=== PATIENT | female | born 1975 | race Caucasian/White ===

== ENCOUNTER 2018-01-26 08:13 | Emergency (ER) | payer MEDICAID, SELFPAY ==
[2018-01-26 08:15] VITALS: BP 146/74; PULSE 104; RESP 24; TEMP 36.6; O2SAT 92; BMI 32.9
--- NOTE | 2018-01-26 08:25 | EKG12_ITS ---
Test Reason : SOB Blood Pressure : / mmHG Vent. Rate : 083 BPM Atrial Rate : 083 BPM P-R Int : 176 ms QRS Dur : 092 ms QT Int : 388 ms P-R-T Axes : 039 056 078 degrees QTc Int : 455 ms Normal sinus rhythm Normal ECG Confirmed by ANY GARCIA, LEVI ([id number]), social media editor DEBI CALDERON ([id number]) on 01/28/2018 3:10:30 PM Referred By: JUDITH Confirmed By:LEVI AGARWAL MD
--- NOTE | 2018-01-26 08:29 | ED.DCSUM_ITS ---
- ER Visit Summary Date of Service: 01/26/18 Chief Complaint: Shortness of breath History of Present Illness: The patient is a 42 F with history of COPD who presents for 2 days of worsening shortness of breath. Patient states she is unable to walk short distances without becoming extremely short of breath. She has associated productive cough, rhinorrhea, sinus congestion, sore throat and pleuritic chest pain. She denies fever. She states she normally gets pneumonia with her COPD, and this feels concerning to her. She denies any recent antibiotic or steroid use. She has nebulizers at home but has not used them in a long time. Patient also has history of hypertension and degenerative joint disease. Patient smokes. Patient is on oxycodone for chronic pain. No blood thinners. Physical Examination: Vital signs: afebrile, hemodynamically stable, 92% O2 sat on room air General: well nourished, well developed, in no distress Skin: warm, dry, no rash, no pallor HEENT: normocephalic and atraumatic; PERRL, EOMI, moist mucous membranes, no oropharyngeal lesions, left TM shows fluid behind the eardrum, no bulging dullness or erythema, right TM unremarkable Cardiovascular: Tachycardic rate and rhythm without murmurs, no peripheral edema, 2+ pulses all distal extremities Respiratory: Mild increased work of breathing, lungs show diffuse inspiratory and expiratory wheezing, diminished breath sounds in the left lower field Abdominal: Abdomen is soft, nontender with normoactive bowel sounds, no guarding or rebound, no masses MSK: Moves all extremities, no deformities, normal strength Neuro: Awake and alert, oriented ?4. No facial droop, sensation and motor function intact and symmetric Test Results: Abnormal Lab Results 01/26/18 01/26/18 08:32 08:32 WBC 6.3 RBC 4.90 Hgb 15.4 H Hct 44.8 MCV 91.4 MCH 31.4 MCHC 34.4 RDW 14.0 RDW Differential 46.7 H Plt Count 321 MPV 9.6 Immature Gran % (Auto) 0.200 Neut % (Auto) 65.7 Lymph % (Auto) 20.7 Mcleod % (Auto) 11.5 H Eos % (Auto) 1.4 Baso % (Auto) 0.5 Absolute Neuts (auto) 4.2 Absolute Lymphs (auto) 1.31 Total Counted Not Reportable Sodium 140 Potassium 3.3 L Chloride 107 Carbon Dioxide 25.0 Anion Gap 8 BUN 4 L Creatinine 0.81 Estim Creat Clear Calc 71.56 Est GFR (MDRD) Af Amer 100 Est GFR (MDRD) Non-Af 82 BUN/Creatinine Ratio 4.9 L Glucose 107 H Calcium 9.1 Troponin I < 0.015 Clinical Impression(s) from Imaging Studies Chest X-Ray 01/26/18 09:00 IMPRESSION: 1. No acute cardiopulmonary abnormality noted. 2. COPD changes. Electronically Signed: Ramona Mccallmu MD at 9:53 EDT Tel , Service support , Medications Given Discontinued Medications Acetaminophen (Tylenol) 650 mg PO X1 ONE Stop: 01/26/18 08:55 Last Admin: 01/26/18 09:00 Dose: 650 mg Albuterol Sulfate (Ventolin Aerosols) 2.5 mg INHALATION Q20M MI Stop: 01/26/18 09:11 Last Admin: 01/26/18 08:37 Dose: Not Given Admin: 01/26/18 08:37 Dose: 2.5 mg Admin: 01/26/18 08:37 Dose: 2.5 mg Albuterol/Ipratropium (Duoneb) 3 ml INHALATION X1 ONE Stop: 01/26/18 08:26 Last Admin: 01/26/18 08:37 Dose: 3 ml Sodium Chloride () 1,000 mls @ 999 mls/hr IV .Q1H1M ONE Stop: 01/26/18 09:25 Last Admin: 01/26/18 08:47 Dose: 999 mls/hr Ketorolac Tromethamine (Toradol) 15 mg IV X1 ONE Stop: 01/26/18 09:59 Prednisone () 60 mg PO X1 ONE Stop: 01/26/18 08:26 Last Admin: 01/26/18 08:45 Dose: 60 mg Emergency Department Course and Treatment: Patient was given a series of breathing treatments and prednisone for concern for COPD exacerbation. EKG showed a sinus rhythm with no ischemic changes. Patient was tachycardic when she initially presented, but heart rate had slowed down at the time of her EKG. After her nebulizer treatments, she was again tachycardic. Reevaluation of the lungs showed great improvement in the wheezing, still with mild end expiratory wheezing. Labs showed no leukocytosis, negative troponin. Chest x-ray showed changes consistent with COPD but no infiltrates or effusions, no pulmonary edema. Patient was complaining of a headache and was given Tylenol for pain. She continued to complain of a headache and was given additional IV Toradol. Headache was localized to the occipital region and upper neck, with paraspinal cervical tenderness, supple neck with full active range of motion, no meningeal signs. Patient was prescribed azithromycin and prednisone burst for COPD exacerbation with concrement and acute bronchitis. She is out of her nebulizer treatments at home and was given a prescription for albuterol. Patient will follow up with her doctor if she is not having improvement in 3-5 days. Patient was discharged home with her breathing and lung exam improved. Treatment Plan: [] Disposition: [] Impression: Acute COPD exacerbation, acute bronchitis This note was generated with [employer] dictation software. It may contain incorrect words, spelling, and punctuation that were not noted in review of the chart prior to signing ED Disposition - Plan for ED Patient: Chief Complaint: Shortness of Breath Prescriptions: Albuterol Aerosols [Ventolin Aerosols] 2.5 mg INHALATION Q4H PRN #30 vial Azithromycin [Zithromax Z-Junior] 250 mg PO UD #1 box Prednisone [Deltasone] 40 mg PO DAILY #10 tab Referrals: Catrachito Berry DO [Primary Care Provider] -
[2018-01-26 08:35] VITALS: O2SAT 94
[2018-01-26] MEDS: Ipratropium/Albuterol Sulfate 3 ML AMPUL.NEB INHALATION (08:37)
[2018-01-26] MEDS: Albuterol 2.5 MG/3 ML VIAL.NEB. INHALATION ×2 (08:37)
[2018-01-26 08:38] VITALS: PULSE 103; RESP 20
[2018-01-26 08:42] LABS: Absolute Lymphocyte Count 1.31 X10^3/ul (0.83-4.51); Absolute Neutrophil Count 4.2 X10^3/uL (2.0-7.7); Basophil# 0.03 X10^3/uL; Basophil% 0.5 % (0-1); Eosinophil# 0.09 X10^3/uL; Eosinophils% 1.4 % (0-5); Hematocrit 44.8 % (37-47); Hemoglobin 15.4 g/dl (12.0-15.0); Lymphocyte # 1.31 X10^3/ul (4.0); Lymphocyte % 20.7 % (19-41); Mean Corp Hgb Conc 34.4 g/gl (32-36); Mean Corpuscular Hgb 31.4 pg (27.0-32.0); Mean Corpuscular Volume 91.4 fL (81-99); Mean Platelet Vol. 9.6 fl (6.2-12.0); Monocyte# 0.73 X10^3/uL; Monocyte% 11.5 % (0-10); Neutrophil # 4.17 X10^3/uL (2.7-7.7); Neutrophil % 65.7 % (47-70); Platelet Count 321 K/mm3 (150-450); RBC Distribution Width SD 46.7 fl (35.1-43.9); White Blood Count 6.3 K/mm3 (4.4-11.0)
[2018-01-26] MEDS: predniSONE 20 MG Tablet 60 MG PO (08:45)
[2018-01-26 08:46] LABS: POSITIVE COUNT NO; POSITIVE DIFFERENTIAL NO; POSITIVE MORPHOLOGY NO
[2018-01-26] MEDS: 0.9% Normal Saline 1,000 ML 999 ML IV (08:47)
[2018-01-26 08:59] LABS: Anion Gap 8 (5-15); BUN 4 mg/dL (7-18); BUN/Creat Ratio 4.9 RATIO (10-20); Calcium,Total 9.1 mg/dL (8.5-10.1); Chloride 107 mmol/L (98-107); Creatinine, Serum 0.81 mg/dL (0.55-1.02); EST Glomerular Filtration Rate 82 mL/min (>60); Est Glom Filt Rate - Afr Amer 100 mL/min (>60); Estimated Creatinine Clearance 71.56 ml/min; Glucose 107 mg/dL (74-106); Potassium 3.3 mmol/L (3.5-5.1); Sodium Level 140 mmol/L (136-145)
[2018-01-26] MEDS: Acetaminophen 325 MG Tablet 650 MG PO (09:00)
--- NOTE | 2018-01-26 09:00 | RAD_ITS ---
STUDY: X-RAY CHEST REASON FOR EXAM: Female, 42 years old. Shortness of breath. Dyspnea. TECHNIQUE: PA and lateral views of the chest. COMPARISON: 08/15/2016 FINDINGS: There is hyperinflation of the lungs consistent with chronic obstructive lung disease (COPD). There is no demonstrated pleural abnormality. Normal size heart. There are small calcified mediastinal lymph nodes. Normal visualized pulmonary arteries. Normal visualized aortic arch and descending thoracic aorta. There is demineralization of the osseous structures. Mildly increased thoracic kyphosis. There is no demonstrated abnormality of the visualized soft tissue structures of the upper abdomen. RAD/Chest PA and Lateral IMPRESSION: 1. No acute cardiopulmonary abnormality noted. 2. COPD changes. Electronically Signed: Ramona Mccallum MD at 9:53 EDT Tel , Service support ,
--- NOTE | 2018-01-26 10:03 | ED.DEP ---
ED Disposition - Plan for ED Patient: Disposition: Home or Assisted Living Chief Complaint: Shortness of Breath Instructions: ED COPD Flare, ED Upper Resp Infec Abx Tx Prescriptions: Albuterol Aerosols [Ventolin Aerosols] 2.5 mg INHALATION Q4H PRN #30 vial Azithromycin [Zithromax Z-Junior] 250 mg PO UD #1 box Prednisone [Deltasone] 40 mg PO DAILY #10 tab Referrals: Catrachito Berry DO [Primary Care Provider] - 3-5 Days if not improving Additional Instructions: You have a respiratory infection and an exacerbation of your COPD. Take the prednisone and the azithromycin antibiotic as prescribed. Use your nebulizer treatments as needed. Use [id number] pain medication as needed for any further headache or aches and pains. If you have any worsening of your condition or any new concerning symptoms, please return immediately to the emergency department for another evaluation.
[2018-01-26] MEDS: Ketorolac 15 MG/ML Vial IV (10:34)
[2018-01-26 10:38] VITALS: BP 131/79; PULSE 84; RESP 17; O2SAT 96
--- NOTE | 2018-01-29 10:36 | CM.ED ---
ED CALLBACK: Follow-up call placed to patient. Patient states she is doing better. She states she is still taking her antibiotic and she has made a follow-up appointment with Dr. Berry for next week. Patient denies further needs or questions at this time.
== END 2018-01-26 10:39 | disposition home or self-care (01) ==
PROVIDERS: Emergency Provider Emergency Medicine; Family Provider Family Medicine; PCP Family Medicine
DX: J44.1 Chronic obstructive pulmonary disease with (acute) exacerbation (principal); J20.9 Acute bronchitis, unspecified; J44.0 Chronic obstructive pulmonary disease with (acute) lower respiratory infection; I10 Essential (primary) hypertension; Z87.01 Personal history of pneumonia (recurrent); Z79.899 Other long term (current) drug therapy; Z72.0 Tobacco use
CPT/HCPCS: 71046; 80048; 84484; 85025; 93005; 94640; 96361; 96374; 99285; J7030; A4216

== ENCOUNTER → 2018-02-13 16:36 | Outpatient (CLI) | payer MEDICAID, SELFPAY ==
[2018-02-13 17:10] LABS: Glucose, Dipstick Normal (Normal); Ketone-Dipstick Negative (Negative); Leukocyte Esterase-Dipstick 25 /ul (Negative); Nitrite-Dipstick Negative (Negative); Occult Blood-Urine Negative /ul (Negative); Protein-Dipstick Negative (Negative); Specific Gravity, Urine 1.015 (1.002-1.030); Urine Bilirubin Dipstick Negative (Negative); Urine Urobilinogen Normal (Normal)
[2018-02-13 17:23] LABS: Absolute Lymphocyte Count 5.03 X10^3/ul (0.83-4.51); Absolute Neutrophil Count 10.1 X10^3/uL (2.0-7.7); Basophil# 0.03 X10^3/uL; Basophil% 0.2 % (0-1); Eosinophils% 1.8 % (0-5); Hematocrit 40.5 % (37-47); Hemoglobin 14.2 g/dl (12.0-15.0); Lymphocyte # 5.03 X10^3/ul (4.0); Lymphocyte % 30.1 % (19-41); Mean Corp Hgb Conc 35.1 g/gl (32-36); Mean Corpuscular Hgb 31.7 pg (27.0-32.0); Mean Corpuscular Volume 90.4 fL (81-99); Mean Platelet Vol. 9.4 fl (6.2-12.0); Monocyte# 1.15 X10^3/uL; Monocyte% 6.9 % (0-10); Neutrophil % 60.3 % (47-70); Platelet Count 313 K/mm3 (150-450); RBC Distribution Width CV 13.6 % (11.6-14.6); RBC Distribution Width SD 44.4 fl (35.1-43.9); Red Blood Count 4.48 M/mm3 (4.2-5.4); White Blood Count 16.7 K/mm3 (4.4-11.0)
[2018-02-13 17:26] LABS: Differential Indicated SCAN CRITERIA MET; POSITIVE COUNT NO; POSITIVE DIFFERENTIAL YES; POSITIVE MORPHOLOGY NO
[2018-02-13 17:49] LABS: ALB/GLOB Ratio 0.9 RATIO (0.9-2.4); AST(SGOT) 9 U/L (15-37); Alanine Aminotransfer ALT/SGPT 15 U/L (13-56); Albumin, Serum 3.4 g/dL (3.2-5.0); Alkaline Phosphatase 114 U/L (45-117); Anion Gap 10 (5-15); BUN 5 mg/dL (7-18); BUN/Creat Ratio 5.6 RATIO (10-20); Calcium,Total 8.4 mg/dL (8.5-10.1); Chloride 92 mmol/L (98-107); Cholesterol 136 mg/dL (200); Creatinine, Serum 0.89 mg/dL (0.55-1.02); EST Glomerular Filtration Rate 74 mL/min (>60); Est Glom Filt Rate - Afr Amer 90 mL/min (>60); Globulin 3.9 g/dL (2.2-4.2); Glucose 93 mg/dL (74-106); High Density Lipoprotein 30 mg/dL; Potassium 2.9 mmol/L (3.5-5.1); Protein, Total 7.3 g/dL (6.4-8.2); Sodium Level 127 mmol/L (136-145); Triglycerides 193 mg/dL; Very Low Density Lipoprotein 39 mg/dL (5-40)
[2018-02-13 17:50] LABS: Color, Urine Yellow (Yellow); Urine Clarity Sl Cldy (Clear)
[2018-02-13 17:55] LABS: Platelet Estimate A (ADEQ); Red Cell Morphology NORM C+C NORMAL (NORM C&C); Stomatocyte 1+
== END ==
PROVIDERS: Family Provider Family Medicine; PCP Family Medicine; Referring Provider Family Medicine; Visit Provider Family Medicine
DX: R80.9 Proteinuria, unspecified (principal); H53.2 Diplopia; I10 Essential (primary) hypertension; L73.2 Hidradenitis suppurativa
CPT/HCPCS: 36415; 80053; 80061; 81002; 85025

== ENCOUNTER → 2018-02-15 11:03 | Outpatient (CLI) | payer MEDICAID, SELFPAY ==
[2018-02-15 12:23] LABS: Absolute Lymphocyte Count 3.38 X10^3/ul (0.83-4.51); Absolute Neutrophil Count 7.6 X10^3/uL (2.0-7.7); Basophil# 0.02 X10^3/uL; Basophil% 0.2 % (0-1); Eosinophil# 0.11 X10^3/uL; Eosinophils% 0.9 % (0-5); Hematocrit 41.2 % (37-47); Hemoglobin 14.4 g/dl (12.0-15.0); Lymphocyte # 3.38 X10^3/ul (4.0); Lymphocyte % 28.4 % (19-41); Mean Corpuscular Hgb 31.5 pg (27.0-32.0); Mean Corpuscular Volume 90.2 fL (81-99); Mean Platelet Vol. 9.9 fl (6.2-12.0); Monocyte# 0.71 X10^3/uL; Neutrophil # 7.62 X10^3/uL (2.7-7.7); Neutrophil % 64.1 % (47-70); Platelet Count 343 K/mm3 (150-450); RBC Distribution Width CV 13.8 % (11.6-14.6); RBC Distribution Width SD 45.2 fl (35.1-43.9); Red Blood Count 4.57 M/mm3 (4.2-5.4); White Blood Count 11.9 K/mm3 (4.4-11.0)
[2018-02-15 12:29] LABS: POSITIVE COUNT NO; POSITIVE DIFFERENTIAL NO; POSITIVE MORPHOLOGY NO
[2018-02-15 12:42] LABS: Anion Gap 6 (5-15); BUN 4 mg/dL (7-18); BUN/Creat Ratio 4.5 RATIO (10-20); Calcium,Total 8.6 mg/dL (8.5-10.1); Chloride 104 mmol/L (98-107); Creatinine, Serum 0.88 mg/dL (0.55-1.02); EST Glomerular Filtration Rate 75 mL/min (>60); Est Glom Filt Rate - Afr Amer 90 mL/min (>60); Glucose 80 mg/dL (74-106); Potassium 3.4 mmol/L (3.5-5.1); Sodium Level 137 mmol/L (136-145)
== END ==
PROVIDERS: Family Provider Family Medicine; PCP Family Medicine; Visit Provider Family Medicine
DX: D72.829 Elevated white blood cell count, unspecified (principal); E87.6 Hypokalemia; E87.1 Hypo-osmolality and hyponatremia; Z51.81 Encounter for therapeutic drug level monitoring
CPT/HCPCS: 36415; 80048; 85025

== ENCOUNTER → 2018-09-02 | Outpatient (CLI) | payer MEDICAID, SELFPAY ==
[2018-09-02 16:01] LABS: Amphetamine Urine VISTA NEGATIVE (<1000 ng/mL); Barbiturate Urine VISTA NEGATIVE (< 200 ng/mL); Benzodiazepine Urine VISTA NEGATIVE (< 200 ng/mL); Cocaine Urine VISTA NEGATIVE (< 300 ng/mL); Ecstacy Urine VISTA NEGATIVE (< 500 ng/mL); Methadone Urine VISTA POSITIVE (< 300 ng/mL); PCP Urine VISTA NEGATIVE (< 25 ng/mL); THC Urine VISTA POSITIVE (< 50 ng/mL); Vista UDS pH Range 6
[2018-09-02 16:38] LABS: OXY Internal Control LINE = VALID (VALID); Oxycodone Drug Screen Negative (<100 ng/mL)
== END | disposition home or self-care (01) ==
LOC: BFHLAB 11:36
PROVIDERS: Family Provider Family Medicine; PCP Family Medicine; Visit Provider Family Medicine
DX: Z51.81 Encounter for therapeutic drug level monitoring (principal)
CPT/HCPCS: 80307; 80365; G0480

== ENCOUNTER → 2018-09-06 | Outpatient (CLI) | payer MEDICAID, SELFPAY ==
[2018-09-06 12:28] LABS: OXY Internal Control LINE = VALID (VALID); Oxycodone Drug Screen Negative (<100 ng/mL)
[2018-09-06 13:02] LABS: Amphetamine Urine VISTA NEGATIVE (<1000 ng/mL); Barbiturate Urine VISTA NEGATIVE (< 200 ng/mL); Benzodiazepine Urine VISTA NEGATIVE (< 200 ng/mL); Cocaine Urine VISTA NEGATIVE (< 300 ng/mL); Ecstacy Urine VISTA NEGATIVE (< 500 ng/mL); Methadone Urine VISTA POSITIVE (< 300 ng/mL); PCP Urine VISTA NEGATIVE (< 25 ng/mL); THC Urine VISTA POSITIVE (< 50 ng/mL); Vista UDS pH Range 5
== END | disposition home or self-care (01) ==
LOC: BFHLAB 09:24
PROVIDERS: Family Provider Family Medicine; PCP Family Medicine; Visit Provider Family Medicine
DX: F11.10 Opioid abuse, uncomplicated (principal); Z51.81 Encounter for therapeutic drug level monitoring
CPT/HCPCS: 80307; 80365; G0480

== ENCOUNTER → 2018-09-11 | Outpatient (CLI) | payer MEDICAID, SELFPAY ==
[2018-09-11 12:52] LABS: Amphetamine Urine VISTA NEGATIVE (<1000 ng/mL); Barbiturate Urine VISTA NEGATIVE (< 200 ng/mL); Benzodiazepine Urine VISTA NEGATIVE (< 200 ng/mL); Cocaine Urine VISTA NEGATIVE (< 300 ng/mL); Ecstacy Urine VISTA NEGATIVE (< 500 ng/mL); Methadone Urine VISTA NEGATIVE (< 300 ng/mL); PCP Urine VISTA NEGATIVE (< 25 ng/mL); THC Urine VISTA NEGATIVE (< 50 ng/mL); Vista UDS pH Range 5
== END | disposition home or self-care (01) ==
LOC: BFHLAB 11:05
PROVIDERS: Family Provider Family Medicine; PCP Family Medicine; Visit Provider Family Medicine
DX: F11.10 Opioid abuse, uncomplicated (principal); Z51.81 Encounter for therapeutic drug level monitoring; G89.29 Other chronic pain
CPT/HCPCS: 80307

== ENCOUNTER → 2018-09-26 | Outpatient (CLI) | payer MEDICAID, SELFPAY ==
[2018-09-26 13:10] LABS: OXY Internal Control LINE = VALID (VALID); Oxycodone Drug Screen Positive (<100 ng/mL)
[2018-09-26 13:51] LABS: Amphetamine Urine VISTA NEGATIVE (<1000 ng/mL); Barbiturate Urine VISTA NEGATIVE (< 200 ng/mL); Benzodiazepine Urine VISTA NEGATIVE (< 200 ng/mL); Cocaine Urine VISTA NEGATIVE (< 300 ng/mL); Ecstacy Urine VISTA NEGATIVE (< 500 ng/mL); Methadone Urine VISTA NEGATIVE (< 300 ng/mL); PCP Urine VISTA NEGATIVE (< 25 ng/mL); THC Urine VISTA POSITIVE (< 50 ng/mL); Vista UDS pH Range 5
== END | disposition home or self-care (01) ==
LOC: BFHLAB 11:10
PROVIDERS: Family Provider Family Medicine; PCP Family Medicine; Visit Provider Family Medicine
DX: G89.29 Other chronic pain (principal); Z51.81 Encounter for therapeutic drug level monitoring
CPT/HCPCS: 80307; 80365; G0480

== ENCOUNTER → 2018-11-05 | Outpatient (CLI) | payer MEDICAID, SELFPAY ==
[2018-11-05 15:57] LABS: Amphetamine Urine VISTA NEGATIVE (<1000 ng/mL); Barbiturate Urine VISTA NEGATIVE (< 200 ng/mL); Benzodiazepine Urine VISTA NEGATIVE (< 200 ng/mL); Cocaine Urine VISTA NEGATIVE (< 300 ng/mL); Ecstacy Urine VISTA NEGATIVE (< 500 ng/mL); Methadone Urine VISTA NEGATIVE (< 300 ng/mL); PCP Urine VISTA NEGATIVE (< 25 ng/mL); THC Urine VISTA NEGATIVE (< 50 ng/mL); Vista UDS pH Range 6
[2018-11-05 17:20] LABS: OXY Internal Control LINE = VALID (VALID); Oxycodone Drug Screen Positive (<100 ng/mL)
== END | disposition home or self-care (01) ==
LOC: BFHLAB 12:29
PROVIDERS: Family Provider Family Medicine; PCP Family Medicine; Visit Provider Family Medicine
DX: G89.29 Other chronic pain (principal); Z51.81 Encounter for therapeutic drug level monitoring
CPT/HCPCS: 80307; 80365; G0480

== ENCOUNTER → 2018-12-19 | Outpatient (CLI) | payer MEDICAID, SELFPAY ==
--- NOTE | 2018-12-19 14:05 | BI_ITS ---
MAMMOGRAPHY - BILATERAL DIAGNOSTIC REASON FOR EXAM: Female, 43 years old. Right breast lump PERTINENT HISTORY: Mother and maternal grandmother with breast cancer. TECHNIQUE: Digital examination. 3-D tomosynthesis was performed. Mediolateral oblique (MLO) and craniocaudad (CC) views of both breasts were obtained. CAD: CAD was performed on this study. COMPARISON: None. Baseline examination. FINDINGS: Breast Composition: There are scattered areas of fibroglandular density. There are no dominant masses or suspicious calcifications. No evidence of focal abnormality along the region of concern on the mammogram in the palpable region on the right. There is no evidence of sonographic abnormality in the same region. No other significant abnormalities are identified. BI/DIAG MAMM W/CAD, BILAT IMPRESSION: Negative diagnostic mammogram. No evidence of focal abnormality on mammogram or sonogram in the region of concern. Yearly followup recommended. ASSESSMENT CATEGORY: BIRADS Category 1: Negative. A letter regarding these results will be sent to the patient by the facility within 30 days. FOLLOW UP RECOMMENDATION: Yearly follow up mammogram recommended. (A) Approximately 10% of breast cancers are not detected by mammography. A normal mammogram should not delay biopsy of a clinically suspicious abnormality. Electronically Signed: Chetan Vallejo MD at 16:16 EDT Tel [phone], Service support ,
--- NOTE | 2018-12-19 14:36 | US_ITS ---
STUDY: ULTRASOUND BREAST - RIGHT REASON FOR EXAM: Female, 43 years old. Right palpable focus TECHNIQUE: Axial and longitudinal images of the RIGHT breast were performed with a high resolution ultrasound transducer. COMPARISON: Sonogram of the same date. FINDINGS: RIGHT Breast: Targeted sonogram of the right breast along the region of concern and also in the upper outer quadrant demonstrates unremarkable fibroglandular tissue. There is no evidence of abnormal cystic or solid lesion. No evidence of focal abnormality is visualized. US/Breast Limited Unilateral IMPRESSION: No evidence of focal abnormality on sonogram is visualized. ASSESSMENT CATEGORY: BIRADS Category 1: Negative. A letter regarding these results will be sent to the patient by the facility within 30 days. FOLLOW UP RECOMMENDATION: Yearly follow up mammogram recommended. (A) Electronically Signed: Chetan Vallejo MD at 14:48 EDT Tel [phone], Service support ,
== END | disposition home or self-care (01) ==
LOC: OPBI 14:00
PROVIDERS: Family Provider Family Medicine; PCP Family Medicine; Referring Provider Family Medicine; Visit Provider Family Medicine
DX: N63.12 Unspecified lump in the right breast, upper inner quadrant (principal)
CPT/HCPCS: 76642; 77062; 77063; 77066; G0279

== ENCOUNTER 2020-01-08 19:59 | Inpatient (IN) | payer MEDICAID, SELFPAY ==
[2020-01-08 20:01] VITALS: BP 162/123; PULSE 96; RESP 18; TEMP 36.3; O2SAT 99; BMI 37.2
--- NOTE | 2020-01-08 20:10 | CM.ED ---
SOCIAL WORK Informant: Triage nurse Patient intoxicated, wanting detox from alcohol. Patient voiced suicidal ideation. Case discussed with Dr. Galvez. Crisis to evaluate once patient is medically cleared. Ayanna Dumont, EDUCATION ADMINISTRATOR, PRICING ASSOCIATE
--- NOTE | 2020-01-08 20:14 | EKG12_ITS ---
Test Reason : DYSRHYTHMIA Blood Pressure : / mmHG Vent. Rate : 087 BPM Atrial Rate : 087 BPM P-R Int : 162 ms QRS Dur : 088 ms QT Int : 372 ms P-R-T Axes : 013 053 050 degrees QTc Int : 447 ms Normal sinus rhythm Low voltage QRS Borderline ECG Confirmed by EWA GARCIA, BECKA ([id number]), social media editor MUSA NAVARRO ([id number]) on 01/12/2020 12:57:29 PM Referred By: CRUZ Confirmed By:BECKA MCNEIL MD
[2020-01-08 20:24] LABS: Mucous, Urine 0 SEEN /hpf (<or=2+); Red Blood Cells-Urine 0 SEEN /hpf (0-5); White Blood Cells 0 SEEN /hpf (0-5)
[2020-01-08 20:28] VITALS: RESP 14
[2020-01-08 20:28] LABS: Color, Urine Straw (Yellow); Glucose, Dipstick Normal (Normal); Ketone-Dipstick Negative (Negative); Leukocyte Esterase-Dipstick Negative /ul (Negative); Nitrite-Dipstick Negative (Negative); Occult Blood-Urine Negative /ul (Negative); Protein-Dipstick Negative (Negative); Specific Gravity, Urine 1.005 (1.002-1.030); Urine Bilirubin Dipstick Negative (Negative); Urine Clarity Clear (Clear); Urine Urobilinogen Normal (Normal); Urine pH 6.5 (5.0 - 8.0)
[2020-01-08 20:39] LABS: Absolute Lymphocyte Count 4.06 X10^3/uL (0.83-4.51); Absolute Neutrophil Count 3.6 X10^3/uL (2.0-7.7); Basophil# 0.08 X10^3/uL; Eosinophil# 0.17 X10^3/uL; Hematocrit 40.2 % (37-47); Hemoglobin 14.2 g/dL (12.0-15.0); Lymphocyte # 4.06 X10^3/ul (4.0); Lymphocyte % 48.2 % (19-41); Mean Corp Hgb Conc 35.3 g/dL (32-36); Mean Corpuscular Hgb 34.6 pg (27.0-32.0); Mean Platelet Vol. 9.4 fl (6.2-12.0); Monocyte# 0.47 X10^3/uL; Monocyte% 5.6 % (0-10); NRBC Flagged by Analyzer 0 % (0-5); Neutrophil # 3.61 X10^3/uL (2.7-7.7); Neutrophil % 42.8 % (47-70); Platelet Count 200 K/mm3 (150-450); RBC Distribution Width CV 14.1 % (11.6-14.6); RBC Distribution Width SD 50.8 fl (35.1-43.9); White Blood Count 8.4 K/mm3 (4.4-11.0)
[2020-01-08 20:41] LABS: Internal QC Validated? YES +Cl - CLEAR BKGD; Pregnancy, Serum, hCG Quali. NEGATIVE Negative
--- NOTE | 2020-01-08 20:41 | ED.RN ---
SPOKE WITH DR. DELGADO ABOUT CONCERN FOR SI. PER DOCTOR NAVIN PATIENT DOES NOT REQUIRE A SITTER AT THIS TIME. PATIENT WILL BE MONITORED VIA CAMERA WHILE IN ROOM.
[2020-01-08 20:45] LABS: Bacteria 1+ /hpf (None Seen); Squamous Epithelial Cells - UA 0-5 SEEN /hpf (5-10)
--- NOTE | 2020-01-08 20:46 | ED.VIS.GEN ---
History of Present Illness <Benjamin Beach - Last Filed: 01/09/20 02:01> Informant: Patient Narrative: Patient is a 44-year-old female who presents to the emergency department for suicidal ideation. She states that this started approximately 2 months ago when she was discontinued on her oxycodone. She states she is in chronic pain and cannot function. She has chronic neck and jaw pain. She has been using methadone and Vicodin off of the streets. She states she has not used this over the past month. She is a daily drinker. She states she drinks around 13 beers plus some vodka per day. This has been a chronic issue for her for her over many years. She does want help with both of these issues with her withdrawal symptoms. She did drink today. She states she last drank 20 minutes prior to coming into the ED. She denies ever having suicidal ideations before in the past. She has had thoughts of harming herself including walking in front of traffic or a train. She is also thought of hanging herself. She denies any other coingestions. She has had distant history with problems of methamphetamine but has been multiple years. She has been complaining of some shortness of breath. She has COPD and smokes around 3 packs of cigarettes a day. She states she has had increased sputum production with her cough. No fevers or chills. No chest pain. No leg swelling or calf pain. <LennyShiva - Last Filed: 01/17/20 15:11> Chief Complaint: Suicidal Past Medical History <BayleeBenjamin - Last Filed: 01/09/20 02:01> Surgical History: no surgical history Smoking Status: Current every day smoker - Family History Maternal Family History: Reports: - - breast cancer Paternal Family History: Reports: - - unkown <Shiva Galvez - Last Filed: 01/17/20 15:11> - Allergies and Home Meds Allergies/Adverse Reactions: Allergies No Known Allergies Allergy (Verified 01/08/20 20:05) Review of Systems All systems negative except as indicated General: Denies: Chills, Fever, Sweats Eyes: Denies: Visual changes - bilaterally, Diplopia ENT: Denies: Rhinorrhea, Sore throat Cardiovascular: Denies: Chest pain, Palpitations Respiratory: Reports: Cough, Sputum. Denies: Dyspnea, Dyspnea on exertion Gastrointestinal: Denies: Abdominal pain, Nausea, Vomiting, Diarrhea Genitourinary: Denies: Dysuria, Hematuria, Frequency Musculoskeletal: Denies: Back pain, Extremity Pain Skin: Denies: Rash, Wounds Neurological: Denies: Headache, Weakness, Numbness <Shiva Galvez - Last Filed: 01/17/20 15:11> Physical Exam Vital Signs/Narrative: Vital Signs Resp 01/09/20 01:08 16 01/09/20 00:31 16 01/08/20 23:24 16 01/08/20 22:11 16 <Benjamin Beach - Last Filed: 01/09/20 02:01> Vital Signs/Narrative: Vital Signs Temp Pulse Resp BP Pulse Ox 01/08/20 20:28 14 01/08/20 20:01 97.3 F L 96 18 162/123 H 99 Inital Vital Signs reviewed: Yes General: Well nourished, Well developed, No Acute Distress Head: Normocephalic, Atraumatic Eyes: Perrl, EOMI ENT: Moist mucous membranes, No rhinorrhea Neck: Supple, Nontender Cardiovascular: Regular rate, Regular rhythm, No murmurs Respiratory: No distress, Chest nontender, Wheezing Abdomen: Soft, Nontender, Nondistended, Normal bowel sounds Back: Nontender, Normal Inspection Extremities: Nontender, No edema Skin: Normal color, No rash Neurological: Alert, Oriented x3, Cranial nerves II-XII grossly intact, Normal Strength, Normal Sensation Psychological: Normal affect, Normal Mood <Shiva Galvez - Last Filed: 01/17/20 15:11> Diagnostic/Tx/Re-eval Impressions Chest X-Ray 01/08/20 21:05 IMPRESSION: Normal x-ray examination of the chest. Electronically Signed: Jose Marin MD at 21:32 EDT , Service support , 01/08/20 21:05 Xray Chest [Chest 1 View (Portable)] [RAD] Stat Laboratory Results 01/08/20 01/08/20 01/08/20 20:20 20:20 20:20 WBC 8.4 RBC 4.10 L Hgb 14.2 Hct 40.2 MCV 98.0 MCH 34.6 H MCHC 35.3 RDW Std Deviation 50.8 H RDW Coeff of Alison 14.1 Plt Count 200 MPV 9.4 Immature Gran % (Auto) 0.400 Neut % (Auto) 42.8 L Lymph % (Auto) 48.2 H Custer % (Auto) 5.6 Eos % (Auto) 2.0 Baso % (Auto) 1.0 Absolute Neuts (auto) 3.6 Absolute Lymphs (auto) 4.06 Nucleated RBC % 0 Sodium 138 Potassium 4.0 Chloride 105 Carbon Dioxide 22.0 Anion Gap 11 BUN 10 Creatinine 0.93 Estim Creat Clear Calc 61.05 Est GFR (MDRD) Af Amer 84 Est GFR (MDRD) Non-Af 69 BUN/Creatinine Ratio 10.7 Glucose 108 H Calcium 8.2 L Total Bilirubin 1.20 H AST 202 H ALT 95 H Alkaline Phosphatase 116 Total Protein 7.8 Albumin 4.2 Globulin 3.6 Albumin/Globulin Ratio 1.2 Serum , Qual Urine Color Urine Clarity Urine pH Ur Specific Coolidge Urine Protein Urine Glucose (UA) Urine Ketones Urine Occult Blood Urine Nitrite Urine Bilirubin Urine Urobilinogen Ur Leukocyte Esterase Urine RBC Urine WBC Ur Squamous Epith Cells Urine Bacteria Urine Mucus Urine Opiates Screen Urine Methadone Screen Ur Barbiturates Screen Ur Phencyclidine Scrn Ur Amphetamines Screen U Methamphetamin-MDMA U Benzodiazepines Scrn Urine Cocaine Screen U Cannabinoids Screen Ur Drug Screen Comment Ethyl Alcohol 248.0 COVID-19 (ASA) 01/08/20 01/08/20 01/08/20 20:20 20:20 20:20 WBC RBC Hgb Hct MCV MCH MCHC RDW Std Deviation RDW Coeff of Alison Plt Count MPV Immature Gran % (Auto) Neut % (Auto) Lymph % (Auto) Custer % (Auto) Eos % (Auto) Baso % (Auto) Absolute Neuts (auto) Absolute Lymphs (auto) Nucleated RBC % Sodium Potassium Chloride Carbon Dioxide Anion Gap BUN Creatinine Estim Creat Clear Calc Est GFR (MDRD) Af Amer Est GFR (MDRD) Non-Af BUN/Creatinine Ratio Glucose Calcium Total Bilirubin AST ALT Alkaline Phosphatase Total Protein Albumin Globulin Albumin/Globulin Ratio Serum , Qual NEGATIVE Urine Color Straw Urine Clarity Clear Urine pH 6.5 Ur Specific Coolidge 1.005 Urine Protein Negative Urine Glucose (UA) Normal Urine Ketones Negative Urine Occult Blood Negative Urine Nitrite Negative Urine Bilirubin Negative Urine Urobilinogen Normal Ur Leukocyte Esterase Negative Urine RBC 0 SEEN Urine WBC 0 SEEN Ur Squamous Epith Cells 0-5 SEEN Urine Bacteria 1+ Urine Mucus 0 SEEN Urine Opiates Screen NEGATIVE Urine Methadone Screen NEGATIVE Ur Barbiturates Screen NEGATIVE Ur Phencyclidine Scrn NEGATIVE Ur Amphetamines Screen NEGATIVE U Methamphetamin-MDMA NEGATIVE U Benzodiazepines Scrn NEGATIVE Urine Cocaine Screen NEGATIVE U Cannabinoids Screen NEGATIVE Ur Drug Screen Comment Ethyl Alcohol COVID-19 (ASA) 01/08/20 20:44 WBC RBC Hgb Hct MCV MCH MCHC RDW Std Deviation RDW Coeff of Alison Plt Count MPV Immature Gran % (Auto) Neut % (Auto) Lymph % (Auto) Custer % (Auto) Eos % (Auto) Baso % (Auto) Absolute Neuts (auto) Absolute Lymphs (auto) Nucleated RBC % Sodium Potassium Chloride Carbon Dioxide Anion Gap BUN Creatinine Estim Creat Clear Calc Est GFR (MDRD) Af Amer Est GFR (MDRD) Non-Af BUN/Creatinine Ratio Glucose Calcium Total Bilirubin AST ALT Alkaline Phosphatase Total Protein Albumin Globulin Albumin/Globulin Ratio Serum , Qual Urine Color Urine Clarity Urine pH Ur Specific Coolidge Urine Protein Urine Glucose (UA) Urine Ketones Urine Occult Blood Urine Nitrite Urine Bilirubin Urine Urobilinogen Ur Leukocyte Esterase Urine RBC Urine WBC Ur Squamous Epith Cells Urine Bacteria Urine Mucus Urine Opiates Screen Urine Methadone Screen Ur Barbiturates Screen Ur Phencyclidine Scrn Ur Amphetamines Screen U Methamphetamin-MDMA U Benzodiazepines Scrn Urine Cocaine Screen U Cannabinoids Screen Ur Drug Screen Comment Ethyl Alcohol COVID-19 (ASA) Negative - Medical Decision Making Patient checked out to me during hourly shift manager. She is sober and wants to discuss with the doctor, so I sat down with her and we had a long discussion. Her main concern is getting off of the addictive substances that she has been on. She admits that she has been having suicidal thoughts ever since she and her doctor discontinued her opioid prescriptions, which it sounds like she did in conjunction with him as a mutual decision, consistent with the initial reason that she came to the [facility], for inpatient detox. She states that she has chronic pain in her neck and back, and her depression stems from this pain and what she is going to do when she is clean of addictive substances including alcohol and opiates. She understands that she will need to see pain management, but not having done so yet, she will be at risk for relapse. She wants to do this first since it is more readily available. She went through [facility] as an outpatient after a 3-day program, but thought she was better and stopped going and then relapsed 4 months later or so. Now she is getting methadone, marijuana, and Vicodin off the street and using them daily. She currently feels like she is in some withdrawal from all the substances, feeling very anxious and shaky. She has no abdominal pain, nausea, vomiting. She is not currently having suicidal ideation but admits to having thoughts in the past month basically. She seems reasonable and insightful. For these reasons, I think she is stable without a sitter, and stable for inpatient detox with outpatient addiction and psychological follow-up, and she is comfortable with this as well. Discussed with Dr. Amado hospitalist. <Benjamin Beach - Last Filed: 01/09/20 02:01> - EKG Initial EKG Interpretation: - - Rate of 87 bpm and normal sinus rhythm. Normal intervals. Normal axis. No ST elevations or depressions appreciated. No T wave abnormalities. Prior EKG for comparison was performed on January 262017 which is similar in appearance. - Medical Decision Making Patient presents to the ED for suicidal ideation as well as alcohol and drug abuse. Will obtain basic lab work. She is complaining of increase sputum production with a cough with a history of COPD. Will check x-ray and give DuoNeb breathing treatment. Her x-ray did not show any evidence of pneumonia. Satting well on room air. Lab work did not reveal any significant acute abnormality except for elevated liver enzymes. This does fit the picture of her history of alcohol abuse. Her alcohol level did come back high. We will reevaluate her once she is sober. Requesting something for pain was given a dose of Motrin. She is a dose of Vistaril for her anxiety. Once patient sober she will be evaluated by crisis. She otherwise has been stable throughout ED stay. Patient signed out due to end of shift. We will plan on transfer due to her suicidal ideation. <Shiva Galvez - Last Filed: 01/17/20 15:11> ED Disposition <Benjamin Beach - Last Filed: 01/09/20 02:01> <Shiva Galvez - Last Filed: 01/17/20 15:11> - Plan for ED Patient: Disposition: Acute Care Hospital [facility] Diagnosis: COPD (chronic obstructive pulmonary disease), Alcohol dependence, Opioid dependence, Suicidal thoughts
[2020-01-08 20:47] LABS: ALB/GLOB Ratio 1.2 RATIO (0.9-2.4); AST(SGOT) 202 U/L (15-37); Alanine Aminotransfer ALT/SGPT 95 U/L (13-56); Albumin, Serum 4.2 g/dL (3.2-5.0); Alkaline Phosphatase 116 U/L (45-117); Anion Gap 11 (5-15); BUN 10 mg/dL (7-18); BUN/Creat Ratio 10.7 RATIO (10-20); Calcium,Total 8.2 mg/dL (8.5-10.1); Chloride 105 mmol/L (98-107); Creatinine, Serum 0.93 mg/dL (0.55-1.02); EST Glomerular Filtration Rate 69 mL/min (>60); Est Glom Filt Rate - Afr Amer 84 mL/min (>60); Estimated Creatinine Clearance 61.05 ml/min; Globulin 3.6 g/dL (2.2-4.2); Glucose 108 mg/dL (74-106); Protein, Total 7.8 g/dL (6.4-8.2); Sodium Level 138 mmol/L (136-145)
--- NOTE | 2020-01-08 21:05 | RAD_ITS ---
STUDY: X-RAY CHEST REASON FOR EXAM: Female, 44 years old. SUICIDAL TECHNIQUE: Single AP portable view of the chest. COMPARISON: Prior study of 01/26/2018 FINDINGS: The lungs are clear and expanded. There is no demonstrated pleural abnormality. Normal size heart. Normal mediastinum and serene. Normal visualized pulmonary arteries. Normal visualized aortic arch and descending thoracic aorta. Normal visualized thoracic spine. Normal visualized ribs, clavicles, and shoulders. There is no demonstrated abnormality of the visualized soft tissue structures of the upper abdomen. RAD/Chest 1 View (Portable) IMPRESSION: Normal x-ray examination of the chest. Electronically Signed: Jose Marin MD at 21:32 EDT , Service support ,
[2020-01-08 21:08] LABS: Amphetamine Urine VISTA NEGATIVE (<1000 ng/mL); Barbiturate Urine VISTA NEGATIVE (< 200 ng/mL); Benzodiazepine Urine VISTA NEGATIVE (< 200 ng/mL); Cocaine Urine VISTA NEGATIVE (< 300 ng/mL); Ecstacy Urine VISTA NEGATIVE (< 500 ng/mL); Methadone Urine VISTA NEGATIVE (< 300 ng/mL); PCP Urine VISTA NEGATIVE (< 25 ng/mL); THC Urine VISTA NEGATIVE (< 50 ng/mL); Vista UDS pH Range 6
[2020-01-08 21:16] VITALS: RESP 16
--- NOTE | 2020-01-08 22:10 | ED.RN ---
PT C/O ANXIETY AND HEADACHE. ORDERS ENTERED PER DR DELGADO.
[2020-01-08 22:11] VITALS: RESP 16
[2020-01-08] MEDS: hydrOXYzine PAM 25 MG Capsule PO (22:11)
[2020-01-08] MEDS: Ibuprofen 600 MG Tablet PO (22:11)
[2020-01-08 22:45] LABS: Probe Check PASS; Specimen Processing Control PASS
[2020-01-08 23:24] VITALS: RESP 16
[2020-01-09] VITALS (15 sets, daily range): BP systolic 123–156; BP diastolic 77–91; PULSE 84–104; RESP 16–24; TEMP 36.6–36.9; O2SAT 97–100; BMI 36.8
--- NOTE | 2020-01-09 01:54 | PCM.HP.STD ---
Problem List (1) Alcohol withdrawal Status: Acute Qualifiers: Complication of substance-induced condition: with unspecified complication Qualified Code(s): F10.239 - Alcohol dependence with withdrawal, unspecified (2) COPD exacerbation Status: Acute (3) Chronic pain syndrome Status: Chronic (4) Alcohol abuse Status: Chronic (5) Polysubstance abuse Status: Chronic (6) COPD (chronic obstructive pulmonary disease) Status: Chronic Qualifiers: COPD type: unspecified COPD Qualified Code(s): J44.9 - Chronic obstructive pulmonary disease, unspecified (7) Esophageal reflux Status: Chronic Qualifiers: Esophagitis presence: esophagitis presence not specified Qualified Code(s): K21.9 - Gastro-esophageal reflux disease without esophagitis (8) Hypertension Status: Chronic Qualifiers: Hypertension type: essential hypertension Qualified Code(s): I10 - Essential (primary) hypertension (9) Tobacco use disorder Status: Chronic History of Present Illness Date of Admission: 01/09/20 Chief Complaint: EtOH withdrawal, Opiate withdrawal The patient is a 44 y/o F w/ PMHx: ? Hx Seizure after epidural injection, HTN, Tobacco use, Chronic COPD, Chronic pain syndrome, EtOH Abuse (13 beers plus vodka daily), Anxiety and Depression, Polysubstance abuse including Opiate abuse, Former Methamphetamine use who presents to the [facility] ED on 01/08/20 w/ history of requested EtOH detoxification as well as requested treatment for oxycodone abuse noting she uses vicodine and methadone however she notes that last narcotic usage was approximately 1 month prior and that she had been getting the Vicodin and the methadone off the street and the oxycodone from her primary care physician but he requested discontinuation secondary to her concerns for opiate abuse. In the ED she also admitted her primary intention for presentation was inability to live like she is currently and that she has become suicidal over the last 1 month since discontinuation of narcotic therapy and onset of severe intractable pain primarily in her neck and jaw region and she notes a history of TMJ even noting specifically a plan of walking in front of a car or hanging herself. She notes these ideas and her usage started when her oxycodone which she had been on chronically for pain was discontinued approximately 1 months prior. Patient also last alcohol intake was approximately 20 minutes prior to presentation. Patient does note recently increased cough as well as occasional wheezing, worse with activity with intermittent productive sputum but no fevers or chills nor any recent nausea, emesis, abdominal pain, diarrhea, alteration in sense of taste or smell. In the ED patient intoxication improved and patient was reevaluated for suicidal ideations. She still continued to state that she has had thoughts specifically over the last month secondary to her chronic pain and that she could not live like this therefore following discussions with patient decision to maintain on suicidal precautions pending crisis evaluation in AM. Work-up in the ED included T 97.3, heart rate 96, BP 162/124, respiratory rate 18, 99% on room air, CBC with WBC 8.4, hemoglobin 14.2, platelet 200 without market shift, CMP remarkable for glucose 108, total bilirubin 1.20, AST/ALT 202/95, alk phos 116, negative test, unremarkable urinalysis, unremarkable UDS, ethyl alcohol level 248, COVID testing pending, chest x-ray with no acute cardiopulmonary disease, EKG with sinus rhythm with no acute evidence of ischemia. In the ED patient administered duonebs, ibuprofen, toradol, prednisone, vistaril, clonidine. Past Medical History Past Medical History (Chronic Problems): Chronic Problems Chronic pain syndrome (Chronic) Alcohol abuse (Chronic) Polysubstance abuse (Chronic) COPD (chronic obstructive pulmonary disease) (Chronic) Dysthymic disorder (Chronic) Esophageal reflux (Chronic) Tobacco use disorder (Chronic) Hypertension (Chronic) Allergies No Known Allergies Allergy (Verified 01/08/20 20:05) Home Medications: Ambulatory Orders Medication Instructions Recorded Amlodipine [Norvasc] 10 mg PO DAILY 07/08/13 Celecoxib [Celebrex] 200 mg PO DAILY 07/08/13 Pregabalin [Lyrica] 100 mg PO BID 07/08/13 Citalopram [Celexa] 40 mg PO DAILY #30 tablet 09/24/14 Metoprolol(XL)Succ [Toprol Xl 50 mg PO DAILY #30 tablet 09/24/14 (Beta Emerson)] Albuterol Inhaler [Ventolin Hfa] 2 puff INHALATION 4X/DAY #0 inhaler 07/14/15 Hydrochlorothiazide [Hctz] 12.5 mg PO DAILY 12/08/15 Tizanidine HCl 4 mg PO PRN PRN 08/15/16 Albuterol Aerosols [Ventolin 2.5 mg INHALATION Q4H PRN #30 vial 01/26/18 Aerosols] Buspirone HCl 10 mg PO DAILY 01/08/20 Cyclobenzaprine HCl 10 mg PO TID 01/08/20 Surgical History: - - Dental surgery. Psychiatric History: Anxiety, Depression, - - Suicidal ideation.s [employer] History: No pertinent [employer] history Lives: Alone Smoking Status: Current every day smoker - 3 ppd ongoing cigarette tobacco usage since she was in her early youth (11-12 years old). Tobacco Use: Cigarettes Alcohol: Heavy - Patient notes 13 to 14, 12 ounce beers per day but she occasionally does drink vodka and if she is drinking primarily vodka can drink nearly 1/2 gallon in 1.5 days. Drugs: Marijuana, - - Patient with also remote history of methamphetamine usage which she smoked but has not done for approximately 20 years. Patient did utilize purchased nonprescribed Vicodin and methadone but has not done so for approximately 1 month she notes and prior to this was on scheduled prescribed oxycodone. - *Family History Maternal History Items: Cancer - Mother with a history of breast cancer. Paternal History Items: - - Patient notes that her father was killed when she was 5 years old in a motor vehicle accident but prior to this she notes that he had been healthy with no history of heart disease, diabetes or cancer. Review of Systems Constitutional: Reports: Anorexia, Malaise, Weakness, Fatigue. Denies: Chills, Fever, Weight Change HEENT: Denies: Head Aches, Sinus Congestion, Sinus Drainage Cardiovascular: Denies: Chest Pain, Palpitations Respiratory: Reports: Cough, Shortness of breath upon exertion, Sputum production, Wheezing. Denies: Shortness of breath at rest Gastrointestinal: Reports: Nausea. Denies: Abdominal Pain, Vomiting Genitourinary: Denies: Dysuria Musculoskeletal: Reports: Back Pain, Joint Pain, Neck Pain, - - BL jaw pain.. Denies: Joint Tenderness Skin: Denies: Rash, Wounds Neurological: Denies: Numbness, Tingling, Focal weakness Psychiatric: Reports: Anxiety, Depression, Suicidal Ideations. Denies: Homicidal Ideations Hematologic/ Lymphatic: Denies: Easy Bruising, Easy Bleeding VTE Information - Inpt Only VTE Present on Admission: No VTE Mechan Device Prophylaxis: None VTE Pharm Prophylaxis ordered?: No Reason prophylaxis not ordered:: Treatment Not Indicated Patient Problems: Active and Suspected Problems Alcohol withdrawal (Acute) COPD exacerbation (Acute) Subjective: Patient seated upright in the ED bed, fatigued, tearful with discussions. Objective: Physical Examination: General: awake, alert, oriented x 3 and cooperative, seated upright in the ED bed at the bedside, tearful with discussions, anxious. Skin: normal color, turgor, no icterus, cyanosis. HEENT: AT/NC, EOMI, PERRLA, dry MM, no carotid bruits or JVD noted. Lungs: Diminished breath sounds, greater bilateral bases, normal effort with no obvious evidence of distress, occasional end expiratory wheeze noted, no rales or rhonchi. Heart: Regular rate and rhythm; no gallop, rub audible. Abdomen: soft, obese, NTTP, ND, normal BS, no HSM. Extremities: no cyanosis, clubbing, or edema. Neurological: patient awake, alert, oriented x 3; cognitive function intact; pupils equally reactive to light and accomodation; cranial nerves II-XII grossly normal, moving all 4 extremities, no focal deficits, strength moderately global decrease secondary to chronic discomfort and acute presentation. Psychiatric: affect appears anxious, tearful, discussed suicidal ideations at length and although initially denied any plan is able to detail what she may do if her pain cannot become controlled. - Physical Exam Vitals/I&O's: Vital Signs Temp Pulse Resp BP Pulse Ox 97.3 F L 96 16 162/123 H 99 01/08/20 20:01 01/08/20 20:01 01/09/20 01:08 01/08/20 20:01 01/08/20 20:01 Oxygen Delivery Method Room Air Weight: 203 lb 11.314 oz Body Mass Index (BMI) 37.2 Laboratory Results 01/08/20 20:20: WBC 8.4, RBC 4.10 L, Hgb 14.2, Hct 40.2, MCV 98.0, MCH 34.6 H, MCHC 35.3, RDW Std Deviation 50.8 H, RDW Coeff of Alison 14.1, Plt Count 200, MPV 9.4, Immature Gran % (Auto) 0.400, Neut % (Auto) 42.8 L, Lymph % (Auto) 48.2 H, Mckinley % (Auto) 5.6, Eos % (Auto) 2.0, Baso % (Auto) 1.0, Absolute Neuts (auto) 3.6, Absolute Lymphs (auto) 4.06, Nucleated RBC % 0 01/08/20 20:20: Sodium 138, Potassium 4.0, Chloride 105, Carbon Dioxide 22.0, Anion Gap 11, BUN 10, Creatinine 0.93, Estim Creat Clear Calc 61.05, Est GFR (MDRD) Af Amer 84, Est GFR (MDRD) Non-Af 69, BUN/Creatinine Ratio 10.7, Glucose 108 H, Calcium 8.2 L, Total Bilirubin 1.20 H, AST 202 H, ALT 95 H, Alkaline Phosphatase 116, Total Protein 7.8, Albumin 4.2, Globulin 3.6, Albumin/Globulin Ratio 1.2 01/08/20 20:20: Ethyl Alcohol 248.0 01/08/20 20:20: Urine Opiates Screen NEGATIVE, Urine Methadone Screen NEGATIVE, Ur Barbiturates Screen NEGATIVE, Ur Phencyclidine Scrn NEGATIVE, Ur Amphetamines Screen NEGATIVE, U Methamphetamin-MDMA NEGATIVE, U Benzodiazepines Scrn NEGATIVE, Urine Cocaine Screen NEGATIVE, U Cannabinoids Screen NEGATIVE, Ur Drug Screen Comment 01/08/20 20:20: Serum , Qual NEGATIVE 01/08/20 20:20: Urine Color Straw, Urine Clarity Clear, Urine pH 6.5, Ur Specific [place] 1.005, Urine Protein Negative, Urine Glucose (UA) Normal, Urine Ketones Negative, Urine Occult Blood Negative, Urine Nitrite Negative, Urine Bilirubin Negative, Urine Urobilinogen Normal, Ur Leukocyte Esterase Negative, Urine RBC 0 SEEN, Urine WBC 0 SEEN, Ur Squamous Epith Cells 0-5 SEEN, Urine Bacteria 1+, Urine Mucus 0 SEEN 01/08/20 20:44: COVID-19 (ASA) Negative Assessment/Plan All Active Problems Alcohol withdrawal (Acute) COPD exacerbation (Acute) Pneumonia (Acute) The patient is a 44 y/o F w/ PMHx: ? Hx Seizure after epidural injection, HTN, Tobacco use, Chronic COPD, Chronic pain syndrome, EtOH Abuse, Anxiety and Depression, Polysubstance abuse including Opiate abuse, Former Methamphetamine use who presents to the [facility] ED on 01/09/20 w/ history of requested EtOH detoxification as well as requested treatment for oxycodone abuse noting she uses vicodine and methadone however she notes that last narcotic usage was approximately 1 month prior and that she had been getting the Vicodin and the methadone off the street and the oxycodone from her primary care physician but he requested discontinuation secondary to her concerns for opiate abuse. 1. EtOH Abuse with impending Acute EtOH Withdrawal: Will admit to MS, routine labs obtained in the ED upon presentation and notable for chronically elevated LFTs. Given interest in sobriety, will initiate and continue on protocol with taper course of Phenobarbital, scheduled gabapentin for seizure prophylaxis, as needed Catapres, Bentyl, Vistaril, IV fluids, IV antiemetics, Tylenol as needed for pain. Will consult Case management for assistance for transition to next level of rehabilitation care. Mag, phos pending. Maintain on CIWA protocol concurrently. 2. Opiate Abuse complicated by Chronic Pain Syndrome w/ Intractable Pain: Patient with significant polysubstance abuse history including opiates which she is interested in remaining off of per discussions although eventually may require chronic regimen with encouraged honesty with her physician to actually achieve control with legal rx substances. Will continue her flexeril, celebrex, maintain on scheduled gabapentin, as noted planned prednisone burst for concurrent mild COPD exacerbation, scheduled toradol x 5 doses, tylenol, arthritic compounding medications. May also consider lidocaine patches. 3. Suicidal ideations with history of anxiety and depression, untreated: Patient with suicidal ideations as well as plan, worse with recent discontinuation of her narcotics approximately 2 months prior she notes. Patient following improvement from intoxication denied specific plans but still admits 1 month suicidal ideations. Will plan treatment for substance abuse with continued sitter and once appropriately treated for alcohol withdrawal and opiate withdrawal would plan transition to program with treatment for her underlying anxiety and depression as well as suicidal ideations. Plan AM crisis evaluation with repeat EtOH level at that time. 5. Acute on Chronic COPD exacerbation, Mild: Strongly encouraged tobacco cessation, continue ATC duonebs, PRN albuterol, HOB, IS parameters, prednisone burst therapy, Mucinex given complaint of occasional productive cough. 6. Polysubstance Abuse: Patient with significant polysubstance abuse history, will obtain HIV and hepatitis status. Regardless, patient currently not candidate for hep C treatment currently as needs to be clean, sober x 6 months, documented attendance NA or AA meetings, counseling and ongoing negative drug screens. Encouraged PCP establishment and follow-up. 7. Hypertension: We will continue home Norvasc, metoprolol, hydrochlorothiazide regimen, PRN IV hydralazine in interim. 8. History of prior seizure, provoked: From history possible seizure activity following an epidural injection, not on antiepileptic drugs, planned usage as noted of gabapentin concurrently. 9. Tobacco Abuse: Encouraged cessation, inpatient consultation per RT, NR if desired. 10. Anxiety and depression: We will continue patient home Celexa and BuSpar regimen. 11. DVT prophylaxis: Low risk, encourage ambulation in her room. Inpatient E&M: 55534 Init Hosp L3
[2020-01-09] MEDS: Ipratropium/Albuterol Sulfate 3 ML AMPUL.NEB INHALATION ×4 (02:00→19:18)
[2020-01-09 03:46] LABS: Magnesium 2.4 mg/dL (1.6-2.6); Phosphorus 2.4 mg/dL (2.5-4.9)
[2020-01-09] MEDS: Lactated Ringers 1,000 ML 125 ML IV (03:47)
[2020-01-09] MEDS: predniSONE 20 MG Tablet 40 MG PO ×2 (03:47→08:16)
[2020-01-09] MEDS: cloNIDine HCl 0.1 MG Tablet 0.2 MG PO (03:49)
[2020-01-09] MEDS: guaiFENesin 1,200 MG Tablet 1200 MG PO ×3 (03:49→21:53)
[2020-01-09] MEDS: Phenobarbital 32.4 MG Tablet 64.8 MG PO ×6 (03:49→23:19)
[2020-01-09] MEDS: hydrOXYzine PAM 25 MG Capsule 50 MG PO ×4 (03:49→19:47)
[2020-01-09] MEDS: Gabapentin 300 MG Capsule PO ×2 (03:49→21:54)
[2020-01-09] MEDS: Ketorolac 30 MG/ML Syringe IV ×2 (03:55→13:31)
[2020-01-09] MEDS: 0.9% Saline Lock 10 ML Syringe IV ×2 (03:56→21:55)
[2020-01-09] MEDS: cycloBENZAPRine HCl 10 MG Tablet PO ×3 (05:07→21:54)
[2020-01-09 06:15] LABS: Absolute Lymphocyte Count 1.67 X10^3/uL (0.83-4.51); Absolute Neutrophil Count 3.9 X10^3/uL (2.0-7.7); Basophil# 0.06 X10^3/uL; Eosinophil# 0.07 X10^3/uL; Eosinophils% 1.2 % (0-5); Hematocrit 34.2 % (37-47); Hemoglobin 11.7 g/dL (12.0-15.0); Lymphocyte # 1.67 X10^3/ul (4.0); Mean Corp Hgb Conc 34.2 g/dL (32-36); Mean Corpuscular Hgb 33.5 pg (27.0-32.0); Mean Platelet Vol. 9.4 fl (6.2-12.0); Monocyte# 0.25 X10^3/uL; Monocyte% 4.2 % (0-10); NRBC Flagged by Analyzer 0 % (0-5); Neutrophil # 3.88 X10^3/uL (2.7-7.7); Neutrophil % 65.1 % (47-70); Platelet Count 160 K/mm3 (150-450); RBC Distribution Width CV 14.2 % (11.6-14.6); RBC Distribution Width SD 51.1 fl (35.1-43.9); Red Blood Count 3.49 M/mm3 (4.2-5.4)
[2020-01-09 06:35] LABS: ALB/GLOB Ratio 1.1 RATIO (0.9-2.4); AST(SGOT) 180 U/L (15-37); Alanine Aminotransfer ALT/SGPT 85 U/L (13-56); Albumin, Serum 3.5 g/dL (3.2-5.0); Alkaline Phosphatase 98 U/L (45-117); Anion Gap 6 (5-15); BUN 11 mg/dL (7-18); BUN/Creat Ratio 11.8 RATIO (10-20); Calcium,Total 7.9 mg/dL (8.5-10.1); Chloride 105 mmol/L (98-107); Creatinine, Serum 0.93 mg/dL (0.55-1.02); EST Glomerular Filtration Rate 69 mL/min (>60); Est Glom Filt Rate - Afr Amer 84 mL/min (>60); Estimated Creatinine Clearance 61.05 ml/min; Globulin 3.1 g/dL (2.2-4.2); Glucose 121 mg/dL (74-106); Potassium 3.8 mmol/L (3.5-5.1); Protein, Total 6.6 g/dL (6.4-8.2); Sodium Level 137 mmol/L (136-145)
[2020-01-09] MEDS: Methocarbamol 750 MG Tablet 1500 MG PO ×3 (06:40→18:50)
[2020-01-09] MEDS: busPIRone 5 MG Tablet 10 MG PO ×2 (08:14→21:54)
[2020-01-09] MEDS: Metoprolol(XL)Succ 50 MG Tablet PO (08:14)
[2020-01-09] MEDS: Citalopram 40 MG TABLET PO (08:15)
[2020-01-09] MEDS: Thiamine Hydrochloride 100 MG Tablet PO (08:15)
[2020-01-09] MEDS: Famotidine 20 MG Tablet PO ×2 (08:15→21:54)
[2020-01-09] MEDS: Multivitamins,Therapeutic Tablet 1 TABLET PO (08:15)
[2020-01-09] MEDS: Folic Acid 1 MG Tablet PO (08:15)
[2020-01-09] MEDS: hydroCHLOROthiazide 12.5mg 12.5 MG PO (08:16)
[2020-01-09] MEDS: amLODIPine 10 MG Tablet PO (08:16)
[2020-01-09] MEDS: Dicyclomine 10 MG Capsule 20 MG PO ×2 (08:21→18:50)
[2020-01-09] MEDS: Pregabalin 50 MG Capsule 100 MG PO ×2 (08:22→21:53)
--- NOTE | 2020-01-09 08:28 | NURSING ---
Pt states that she has had Gabapentin in the past and it has made her lose her memory and very sleepy where she could not stay awake. pt refused to take it as a prn. This nurse gave Vistaril to pt. Ernesto Diamond sitting with pt.
--- NOTE | 2020-01-09 10:43 | PN_ITS ---
Patient Problems: Active and Suspected Problems Alcohol withdrawal (Acute) COPD exacerbation (Acute) Alcohol dependence (Acute) Opioid dependence (Acute) Suicidal thoughts (Acute) Reason for Visit: Acute alcohol and opioid withdrawal and suicidal thought Objective: The patient is admitted for acute alcohol and opioid withdrawal Patient drinks 13 beers daily along with half gallon vodka daily. She also uses opioid, oxycodone. Initially given for back pain and then she tried to quit it and then overdosed after she had withdrawal symptoms. She complains of neck pain and TMJ pain. She also had suicidal thoughts of walking in front of the car or semi-. Currently she is on one-to-one watch. She is feeling cold and shivering, anxiety attack and tremors. Vitals/I&O's: Vital Signs Temp Pulse Resp BP Pulse Ox 98.1 F 90 20 H 135/81 H 100 01/09/20 08:37 01/09/20 08:37 01/09/20 08:37 01/09/20 08:37 01/09/20 08:37 Oxygen Delivery Method Room Air Weight: 201 lb 0.985 oz Body Mass Index (BMI) 36.8 Intake and Output for Last 24 Hours 01/07/20 01/08/20 01/09/20 23:59 23:59 23:59 Intake Total 600 / 600 Balance 600 / 600 Laboratory Results 01/08/20 20:20: WBC 8.4, RBC 4.10 L, Hgb 14.2, Hct 40.2, MCV 98.0, MCH 34.6 H, MCHC 35.3, RDW Std Deviation 50.8 H, RDW Coeff of Alison 14.1, Plt Count 200, MPV 9.4, Immature Gran % (Auto) 0.400, Neut % (Auto) 42.8 L, Lymph % (Auto) 48.2 H, [place] % (Auto) 5.6, Eos % (Auto) 2.0, Baso % (Auto) 1.0, Absolute Neuts (auto) 3.6, Absolute Lymphs (auto) 4.06, Nucleated RBC % 0 01/08/20 20:20: Sodium 138, Potassium 4.0, Chloride 105, Carbon Dioxide 22.0, Anion Gap 11, BUN 10, Creatinine 0.93, Estim Creat Clear Calc 61.05, Est GFR (MDRD) Af Amer 84, Est GFR (MDRD) Non-Af 69, BUN/Creatinine Ratio 10.7, Glucose 108 H, Calcium 8.2 L, Total Bilirubin 1.20 H, AST 202 H, ALT 95 H, Alkaline Phosphatase 116, Total Protein 7.8, Albumin 4.2, Globulin 3.6, Albumin/Globulin Ratio 1.2 01/08/20 20:20: Ethyl Alcohol 248.0 01/08/20 20:20: Urine Opiates Screen NEGATIVE, Urine Methadone Screen NEGATIVE, Ur Barbiturates Screen NEGATIVE, Ur Phencyclidine Scrn NEGATIVE, Ur Amphetamines Screen NEGATIVE, U Methamphetamin-MDMA NEGATIVE, U Benzodiazepines Scrn NEGATIVE, Urine Cocaine Screen NEGATIVE, U Cannabinoids Screen NEGATIVE, Ur Drug Screen Comment 01/08/20 20:20: Serum , Qual NEGATIVE 01/08/20 20:20: Urine Color Straw, Urine Clarity Clear, Urine pH 6.5, Ur Specific [place] 1.005, Urine Protein Negative, Urine Glucose (UA) Normal, Urine Ketones Negative, Urine Occult Blood Negative, Urine Nitrite Negative, Urine Bilirubin Negative, Urine Urobilinogen Normal, Ur Leukocyte Esterase Negative, Urine RBC 0 SEEN, Urine WBC 0 SEEN, Ur Squamous Epith Cells 0-5 SEEN, Urine Bacteria 1+, Urine Mucus 0 SEEN 01/08/20 20:20: Phosphorus 2.4 L, Magnesium 2.4 01/08/20 20:44: COVID-19 (ASA) Negative 01/09/20 05:45: WBC 6.0, RBC 3.49 L, Hgb 11.7 L, Hct 34.2 L, MCV 98.0, MCH 33.5 H, MCHC 34.2, RDW Std Deviation 51.1 H, RDW Coeff of Alison 14.2, Plt Count 160, MPV 9.4, Immature Gran % (Auto) 0.500, Neut % (Auto) 65.1, Lymph % (Auto) 28.0, [place] % (Auto) 4.2, Eos % (Auto) 1.2, Baso % (Auto) 1.0, Absolute Neuts (auto) 3.9, Absolute Lymphs (auto) 1.67, Nucleated RBC % 0 01/09/20 05:45: Sodium 137, Potassium 3.8, Chloride 105, Carbon Dioxide 26.0, Anion Gap 6, BUN 11, Creatinine 0.93, Estim Creat Clear Calc 61.05, Est GFR (MDRD) Af Amer 84, Est GFR (MDRD) Non-Af 69, BUN/Creatinine Ratio 11.8, Glucose 121 H, Calcium 7.9 L, Total Bilirubin 0.80, AST 180 H, ALT 85 H, Alkaline Phosphatase 98, Total Protein 6.6, Albumin 3.5, Globulin 3.1, Albumin/Globulin Ratio 1.1 01/09/20 05:45: Ethyl Alcohol 9.0 Current Medications Acetaminophen (Tylenol) 500 mg PO Q4H PRN PRN PRN Reason: Temp > 100.4 F Albuterol Sulfate (Ventolin Aerosols) 2.5 mg INHALATION Q2H PRN PRN PRN Reason: Dyspnea, wheezing Albuterol/Ipratropium (Duoneb) 3 ml INHALATION Q4HWA.RT COUNTS INCLUDE 234 BEDS AT THE [facility] Last Admin: 01/09/20 10:39 Dose: 3 ml Documented by: Amlodipine Besylate (Norvasc) 10 mg PO DAILY COUNTS INCLUDE 234 BEDS AT THE [facility] Last Admin: 01/09/20 08:16 Dose: 10 mg Documented by: Bisacodyl (Dulcolax) 10 mg RECTAL DAILY PRN PRN PRN Reason: Constipation Buspirone HCl (Buspar) 10 mg PO DAILY COUNTS INCLUDE 234 BEDS AT THE [facility] Last Admin: 01/09/20 08:14 Dose: 10 mg Documented by: Celecoxib (Celebrex) 200 mg PO DAILY COUNTS INCLUDE 234 BEDS AT THE [facility] Citalopram Hydrobromide (Celexa) 40 mg PO DAILY COUNTS INCLUDE 234 BEDS AT THE [facility] Last Admin: 01/09/20 08:15 Dose: 40 mg Documented by: Clonidine (Catapres) 0.1 mg PO Q8H PRN PRN PRN Reason: RESTLESSNESS Cyclobenzaprine HCl (Flexeril) 10 mg PO TID COUNTS INCLUDE 234 BEDS AT THE [facility] Last Admin: 01/09/20 05:07 Dose: 10 mg Documented by: Dicyclomine HCl (Bentyl) 20 mg PO Q6H PRN PRN PRN Reason: abdominal discomfort Last Admin: 01/09/20 08:21 Dose: 20 mg Documented by: Famotidine (Pepcid) 20 mg PO BID COUNTS INCLUDE 234 BEDS AT THE [facility] Last Admin: 01/09/20 08:15 Dose: 20 mg Documented by: Folic Acid (Folic Acid) 1 mg PO DAILY@0800 COUNTS INCLUDE 234 BEDS AT THE [facility] Last Admin: 01/09/20 08:15 Dose: 1 mg Documented by: Gabapentin (Neurontin) 300 mg PO Q8 COUNTS INCLUDE 234 BEDS AT THE [facility] Last Admin: 01/09/20 03:49 Dose: 300 mg Documented by: Guaifenesin (Mucinex) 1,200 mg PO BID COUNTS INCLUDE 234 BEDS AT THE [facility] Last Admin: 01/09/20 08:16 Dose: 1,200 mg Documented by: Hydrochlorothiazide () 12.5 mg PO DAILY COUNTS INCLUDE 234 BEDS AT THE [facility] Last Admin: 01/09/20 08:16 Dose: 12.5 mg Documented by: Hydroxyzine Pamoate (Vistaril Pamoate Capsule) 50 mg PO Q4H PRN PRN PRN Reason: mild anxiety Last Admin: 01/09/20 08:21 Dose: 50 mg Documented by: Lactated Ringer's () 1,000 mls @ 125 mls/hr IV .Q8H COUNTS INCLUDE 234 BEDS AT THE [facility] Stop: 01/09/20 10:59 Last Admin: 01/09/20 03:47 Dose: 125 mls/hr Documented by: Ketorolac Tromethamine (Toradol (Bkc)) 30 mg IV Q8 COUNTS INCLUDE 234 BEDS AT THE [facility] Stop: 01/10/20 14:01 Last Admin: 01/09/20 03:55 Dose: 30 mg Documented by: Loperamide HCl (Imodium) 2 mg PO Q4H PRN PRN PRN Reason: LOOSE STOOLS Methocarbamol (Methocarbamol) 1,500 mg PO Q6H PRN PRN PRN Reason: MUSCLE SPASM Last Admin: 01/09/20 06:40 Dose: 1,500 mg Documented by: Metoprolol Succinate (Toprol Xl (Beta Emerson)) 50 mg PO DAILY COUNTS INCLUDE 234 BEDS AT THE [facility] Last Admin: 01/09/20 08:14 Dose: 50 mg Documented by: [facility] Last Admin: 01/09/20 08:15 Dose: 1 tablet Documented by: Nicotine (Nicoderm Cq (Pbkc)) 21 mg TRANSDERM. DAILY COUNTS INCLUDE 234 BEDS AT THE [facility] Last Admin: 01/09/20 08:25 Dose: Not Given Documented by: Ondansetron HCl (Zofran Odt) 8 mg PO Q8H PRN PRN PRN Reason: NAUSEA Phenobarbital (Phenobarbital) 97.2 mg PO Q4H COUNTS INCLUDE 234 BEDS AT THE [facility]; Taper Stop: 01/13/20 11:29 Last Admin: 01/09/20 06:40 Dose: 97.2 mg Documented by: Prednisone () 40 mg PO DAILY@0800 COUNTS INCLUDE 234 BEDS AT THE [facility] Last Admin: 01/09/20 08:16 Dose: 40 mg Documented by: Pregabalin (Lyrica) 100 mg PO BID COUNTS INCLUDE 234 BEDS AT THE [facility] Last Admin: 01/09/20 08:22 Dose: 100 mg Documented by: Senna (Senokot) 2 tablet PO QHS PRN PRN PRN Reason: Constipation Sodium Chloride () 10 - 40 ml IV UD PRN PRN Reason: SALINE FLUSH Last Admin: 01/09/20 03:56 Dose: 10 ml Documented by: Thiamine HCl (Vitamin B1) 100 mg PO DAILYCM COUNTS INCLUDE 234 BEDS AT THE [facility] Last Admin: 01/09/20 08:15 Dose: 100 mg Documented by: Throat Lozenges (Cepacol Sore Throat Lozenge) 1 lozenge MUCOUS MEM Q2H PRN PRN PRN Reason: SORE THROAT Trazodone HCl (Desyrel) 100 mg PO QHS PRN PRN Reason: INSOMNIA STROKE Vital Signs/Narrative: Vital Signs Temp Pulse Resp BP Pulse Ox 01/09/20 08:37 98.1 F 90 20 H 135/81 H 100 01/09/20 08:14 90 01/09/20 08:05 98.1 F 90 20 H 135/81 H 100 01/09/20 06:54 88 20 H 97 Medical Necessity - Tobacco Use Smoking Status: Current every day smoker Tobacco Use: Cigarettes Assessment/Plan All Active Problems Alcohol withdrawal (Acute) COPD exacerbation (Acute) Alcohol dependence (Acute) Opioid dependence (Acute) Suicidal thoughts (Acute) Pneumonia (Acute) The patient is 44 female with history of chronic alcohol use, chronic pain dependence on opioids, chronic opioid use and dependence, COPD and multiple other comorbidities was admitted for alcohol and opioid withdrawal syndrome. 1. Acute alcohol withdrawal with history of chronic alcohol use and dependence: Patient is started on phenobarbital based supportive medications including gabapentin, clonidine, Bentyl, Vistaril, IV fluid and antiemetics. 2. Acute opioid withdrawal with history of chronic opioid use and dependence: Patient states she was using oxycodone high-dose for chronic neck pain and TMJ. 3. Mild COPD exacerbation: On DuoNeb, PRN albuterol, incentive spirometry, prednisone and Mucinex. 4. Anxiety, depression and suicidal ideation: Patient stated she wanted to come in front of semi-. She never had suicidal attempt. Crisis management evaluation. Patient currently has coherent speech to provide meaningful history. 5. Chronic polysubstance use with methamphetamine: 6. Other comorbidities include hypertension, seizure provoked from epidural in jection, not on antiepileptic medication, chronic cigarette smoking/nicotine dependence. Multiple comorbidities complicates the present care and expect difficult and delay recovery 7. VTE prophylaxis: Moderate risk, Lovenox 40 mg subcu daily. Total time of the visit including total time spent in counseling or coordination of care, (more than 50% of the total time, spent in obtaining medical i nformation from nurses and other ancillary care providers), nursing staff, case preparer and liner, crisis management, review of labs and imaging is 30 minutes. Inpatient E&M: 31280 Subs Hosp L3
--- NOTE | 2020-01-09 11:09 | CASEMGMT ---
Social Work Pt admitted for ETOH and Opiate Withdrawal. Pt also expressing suicidal ideation when in the ED and physician requesting crisis consult. Phone call to Sania at Crisis. Sania stating they will not see pt until pt is medically stable and has completed the medication stabilization regime for detox which should be on Sunday. Katelyn at 180 notified of pt admission and desire for treatment as well as suicidal ideation expressed in ED. Katelyn to assess for alcohol/substance abuse discharge planning. Nursing updated regarding crisis followup. YARITZA Hubbard
[2020-01-09] MEDS: Acetaminophen 500 MG Tablet PO (11:15)
--- NOTE | 2020-01-09 11:20 | ADDICTION ---
This poem writer met with patient in her room to complete ASAM, MSE and AUDIT assessments and to begin discharge planning. Patient refused residential recommendation but is amiable to individual cousneling services with [facility] or [facility] in [place], [place]. She reports that she will contact an agency to set up treatment upon her discharge. She is currently waiting to be seen by Crisis due to suicidal ideations so we were unable to make appointment during this visit due to now knowing how long she will be at [facility].
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
[2020-01-09] MEDS: Enoxaparin 40 MG/0.4 ML Syringe SC (13:34)
[2020-01-09] MEDS: cloNIDine HCl 0.1 MG Tablet PO ×2 (13:47→21:54)
[2020-01-09] MEDS: Ibuprofen 600 MG Tablet PO (19:47)
[2020-01-09] MEDS: traZODone 100 MG Tablet PO (21:53)
[2020-01-10] VITALS (13 sets, daily range): BP systolic 117–137; BP diastolic 74–78; PULSE 80–97; RESP 16–20; TEMP 36.6–36.7; O2SAT 96–100
[2020-01-10] MEDS: Ketorolac 30 MG/ML Syringe IV (00:40)
[2020-01-10] MEDS: 0.9% Saline Lock 10 ML Syringe IV ×3 (00:40→23:40)
[2020-01-10] MEDS: hydrOXYzine PAM 25 MG Capsule 50 MG PO ×4 (00:41→20:04)
[2020-01-10] MEDS: Methocarbamol 750 MG Tablet 1500 MG PO ×4 (00:48→23:27)
[2020-01-10] MEDS: Lidocaine 5% Patch 2 PATCH TOPICAL ×2 (04:04→12:01)
[2020-01-10] MEDS: Phenobarbital 32.4 MG Tablet 64.8 MG PO ×6 (04:05→23:40)
[2020-01-10] MEDS: cycloBENZAPRine HCl 10 MG Tablet PO ×3 (06:42→20:11)
[2020-01-10] MEDS: Gabapentin 300 MG Capsule PO ×3 (06:42→20:10)
[2020-01-10] MEDS: Ipratropium/Albuterol Sulfate 3 ML AMPUL.NEB INHALATION ×4 (07:07→19:19)
[2020-01-10] MEDS: busPIRone 5 MG Tablet 10 MG PO ×2 (09:13→20:12)
[2020-01-10] MEDS: Famotidine 20 MG Tablet PO ×2 (09:14→20:12)
[2020-01-10] MEDS: guaiFENesin 1,200 MG Tablet 1200 MG PO ×2 (09:14→20:11)
[2020-01-10] MEDS: Citalopram 40 MG TABLET PO (09:15)
[2020-01-10] MEDS: Folic Acid 1 MG Tablet PO (09:15)
[2020-01-10] MEDS: Thiamine Hydrochloride 100 MG Tablet PO (09:15)
[2020-01-10] MEDS: predniSONE 20 MG Tablet 40 MG PO (09:16)
[2020-01-10] MEDS: Enoxaparin 40 MG/0.4 ML Syringe SC (09:17)
[2020-01-10] MEDS: Multivitamins,Therapeutic Tablet 1 TABLET PO (09:17)
[2020-01-10] MEDS: amLODIPine 10 MG Tablet PO (09:18)
[2020-01-10] MEDS: Metoprolol(XL)Succ 50 MG Tablet PO (09:18)
[2020-01-10] MEDS: hydroCHLOROthiazide 12.5mg 12.5 MG PO (09:19)
[2020-01-10] MEDS: Pregabalin 50 MG Capsule 100 MG PO ×2 (09:21→20:15)
[2020-01-10] MEDS: Ibuprofen 600 MG Tablet PO ×3 (09:33→23:26)
[2020-01-10] MEDS: cloNIDine HCl 0.1 MG Tablet PO ×2 (09:33→17:12)
--- NOTE | 2020-01-10 11:10 | PCM.PN.HOSP ---
Patient Problems: Active and Suspected Problems Alcohol withdrawal (Acute) COPD exacerbation (Acute) Alcohol dependence (Acute) Opioid dependence (Acute) Suicidal thoughts (Acute) Objective: Patient alcohol withdrawal symptoms are better. Denies seizure, hallucinations. Complain of chronic neck pain and back pain. Yesterday evening discussed with the pharmacist and Toradol was discontinued and replaced with the Motrin. Patient can resume Celebrex after discharge. Physical exam General: Alert, Oriented x3, Cooperative HEENT: Atraumatic, PERRLA, EOMI, Normocephalic Oral: No Gingival or Mucosal Lesions/ Ulcerations Neck: Supple, No JVD, Negative Carotid Bruits Lungs: Air entry diminished in bilateral lung bases. No crepitation/rhonchi Cardiovascular: Regular rate, Regular Rhythm, Normal S1, Normal S2, No murmurs Abdomen: Bowel Sounds Present, Soft, Non Tender, Non-Distended : No renal angle tenderness. No suprapubic tenderness. Extremities: No edema, Capillary Refill Less than 3 Seconds Skin: No rashes, No breakdown Musculoskeletal: Mild tenderness over cervical spine. No Tenderness to Palpation of other joints or Extremities Neurological: Cranial nerves II-XII grossly intact, Deep Tendon Reflexes 2+/4 and Symmetrical, Neuro grossly intact Psych/Mental Status: Normal Affect, Appropriate. Vitals/I&O's: Vital Signs Temp Pulse Resp BP Pulse Ox 97.8 F 85 18 133/75 H 96 01/10/20 04:03 01/10/20 10:35 01/10/20 10:35 01/10/20 04:03 01/10/20 07:08 Oxygen Delivery Method Room Air Weight: 201 lb 0.985 oz Body Mass Index (BMI) 36.8 Intake and Output for Last 24 Hours 01/08/20 01/09/20 01/10/20 23:59 23:59 23:59 Intake Total 1959 1160 / 1160 Balance 1959 1160 / 1160 Current Medications Acetaminophen (Tylenol) 500 mg PO Q4H PRN PRN PRN Reason: Temp > 100.4 F Last Admin: 01/09/20 11:15 Dose: 500 mg Documented by: Albuterol Sulfate (Ventolin Aerosols) 2.5 mg INHALATION Q2H PRN PRN PRN Reason: Dyspnea, wheezing Albuterol/Ipratropium (Duoneb) 3 ml INHALATION Q4HWA.RT [facility] Last Admin: 01/10/20 10:30 Dose: 3 ml Documented by: Amlodipine Besylate (Norvasc) 10 mg PO DAILY [facility] Last Admin: 01/10/20 09:18 Dose: 10 mg Documented by: Bisacodyl (Dulcolax) 10 mg RECTAL DAILY PRN PRN PRN Reason: Constipation Buspirone HCl (Buspar) 10 mg PO BID [facility] Last Admin: 01/10/20 09:13 Dose: 10 mg Documented by: Citalopram Hydrobromide (Celexa) 40 mg PO DAILY [facility] Last Admin: 01/10/20 09:15 Dose: 40 mg Documented by: Clonidine (Catapres) 0.1 mg PO Q8H PRN PRN PRN Reason: RESTLESSNESS Last Admin: 01/10/20 09:33 Dose: 0.1 mg Documented by: Cyclobenzaprine HCl (Flexeril) 10 mg PO TID [facility] Last Admin: 01/10/20 06:42 Dose: 10 mg Documented by: Dicyclomine HCl (Bentyl) 20 mg PO Q6H PRN PRN PRN Reason: abdominal discomfort Last Admin: 01/09/20 18:50 Dose: 20 mg Documented by: Enoxaparin Sodium (Lovenox) 40 mg SC DAILY [facility] Last Admin: 01/10/20 09:17 Dose: 40 mg Documented by: Famotidine (Pepcid) 20 mg PO BID [facility] Last Admin: 01/10/20 09:14 Dose: 20 mg Documented by: Folic Acid (Folic Acid) 1 mg PO DAILY@0800 [facility] Last Admin: 01/10/20 09:15 Dose: 1 mg Documented by: Gabapentin (Neurontin) 300 mg PO Q8 [facility] Last Admin: 01/10/20 06:42 Dose: 300 mg Documented by: Guaifenesin (Mucinex) 1,200 mg PO BID [facility] Last Admin: 01/10/20 09:14 Dose: 1,200 mg Documented by: Hydrochlorothiazide () 12.5 mg PO DAILY [facility] Last Admin: 01/10/20 09:19 Dose: 12.5 mg Documented by: Hydroxyzine Pamoate (Vistaril Pamoate Capsule) 50 mg PO Q4H PRN PRN PRN Reason: mild anxiety Last Admin: 01/10/20 09:33 Dose: 50 mg Documented by: Ibuprofen (Motrin) 600 mg PO Q6H PRN PRN PRN Reason: Pain Score 6-10/10 Last Admin: 01/10/20 09:33 Dose: 600 mg Documented by: Lidocaine (Lidoderm Patch) 2 patch TOPICAL DAILY [facility]; Protocol Last Admin: 01/10/20 04:04 Dose: 2 patch Documented by: Loperamide HCl (Imodium) 2 mg PO Q4H PRN PRN PRN Reason: LOOSE STOOLS Methocarbamol (Methocarbamol) 1,500 mg PO Q6H PRN PRN PRN Reason: MUSCLE SPASM Last Admin: 01/10/20 09:33 Dose: 1,500 mg Documented by: Metoprolol Succinate (Toprol Xl (Beta Emerson)) 50 mg PO DAILY [facility] Last Admin: 01/10/20 09:18 Dose: 50 mg Documented by: [facility] Last Admin: 01/10/20 09:17 Dose: 1 tablet Documented by: Nicotine (Nicoderm Cq (Pbkc)) 21 mg TRANSDERM. DAILY [facility] Last Admin: 01/10/20 09:14 Dose: 21 mg Documented by: Ondansetron HCl (Zofran Odt) 8 mg PO Q8H PRN PRN PRN Reason: NAUSEA Phenobarbital (Phenobarbital) 97.2 mg PO Q4H [facility]; Taper Stop: 01/13/20 11:29 Last Admin: 01/10/20 06:42 Dose: 97.2 mg Documented by: Prednisone () 40 mg PO DAILY@0800 [facility] Last Admin: 01/10/20 09:16 Dose: 40 mg Documented by: Pregabalin (Lyrica) 100 mg PO BID [facility] Last Admin: 01/10/20 09:21 Dose: 100 mg Documented by: Senna (Senokot) 2 tablet PO QHS PRN PRN PRN Reason: Constipation Sodium Chloride () 10 - 40 ml IV UD PRN PRN Reason: SALINE FLUSH Last Admin: 01/10/20 00:40 Dose: 10 ml Documented by: Thi[facility]) [facility] Last Admin: 01/10/20 09:15 Dose: 100 mg Documented by: Throat Lozenges (Cepacol Sore Throat Lozenge) 1 lozenge MUCOUS MEM Q2H PRN PRN PRN Reason: SORE THROAT Trazodone HCl (Desyrel) 100 mg PO QHS PRN PRN Reason: INSOMNIA Last Admin: 01/09/20 21:53 Dose: 100 mg Documented by: STROKE Vital Signs/Narrative: Vital Signs Pulse Resp 01/10/20 10:35 85 18 01/10/20 09:18 87 Medical Necessity - Tobacco Use Smoking Status: Current every day smoker Tobacco Use: Cigarettes Assessment/Plan All Active Problems Alcohol withdrawal (Acute) COPD exacerbation (Acute) Alcohol dependence (Acute) Opioid dependence (Acute) Suicidal thoughts (Acute) Pneumonia (Acute) The patient is 44 female with history of chronic alcohol use, chronic pain dependence on opioids, chronic opioid use and dependence, COPD and multiple other comorbidities was admitted for alcohol and opioid withdrawal syndrome. 1. Acute alcohol withdrawal with history of chronic alcohol use and dependence: Patient is started on phenobarbital based supportive medications including gabapentin, clonidine, Bentyl, Vistaril, IV fluid and antiemetics. 01/09: Symptoms are better controlled. Continue the regimen. 2. Acute opioid withdrawal with history of chronic opioid use and dependence: Patient states she was using oxycodone high-dose for chronic neck pain and TMJ. 01/09: Toradol was replaced with Motrin. Discussed with the pharmacist. 3. Mild COPD exacerbation: On DuoNeb, PRN albuterol, incentive spirometry, prednisone and Mucinex. Breathing is much better. 4. Anxiety, depression and suicidal ideation: Patient stated she wanted to come in front of semi-. She never had suicidal attempt. Crisis management evaluation. Patient currently has coherent speech to provide meaningful history. 5. Chronic polysubstance use with methamphetamine: 6. Other comorbidities include hypertension, seizure provoked from epidural injection, not on antiepileptic medication, chronic cigarette smoking/nicotine dependence. Multiple comorbidities complicates the present care and expect difficult and delay recovery 7. VTE prophylaxis: Moderate risk, Lovenox 40 mg subcu daily. Total time of the visit including total time spent in counseling or coordination of care, (more than 50% of the total time, spent in obtaining medical information from nurses and other ancillary care providers), nursing staff, catalytic case operator, crisis management, review of labs and imaging is 30 minutes. Inpatient E&M: [address] [facility] L[facility]
[2020-01-10] MEDS: Dicyclomine 10 MG Capsule 20 MG PO (12:13)
[2020-01-10] MEDS: Ondansetron ODT 4 MG Tablet 8 MG PO (12:13)
[2020-01-10] MEDS: Loperamide 2 MG Capsule PO (17:12)
[2020-01-10] MEDS: Acetaminophen 500 MG Tablet PO (20:09)
[2020-01-10] MEDS: traZODone 100 MG Tablet PO (23:27)
[2020-01-11] MEDS: Acetaminophen 500 MG Tablet PO (01:22)
[2020-01-11] MEDS: hydrOXYzine PAM 25 MG Capsule 50 MG PO ×2 (01:23→06:16)
[2020-01-11] MEDS: Dicyclomine 10 MG Capsule 20 MG PO ×2 (01:25→08:34)
[2020-01-11] MEDS: Phenobarbital 32.4 MG Tablet 64.8 MG PO ×2 (03:27→08:33)
[2020-01-11 03:29] VITALS: BP 125/79; PULSE 81; RESP 18; TEMP 36.6; O2SAT 94
[2020-01-11 03:30] VITALS: BP 125/79; PULSE 82; RESP 18; TEMP 36.6; O2SAT 94
[2020-01-11] MEDS: cloNIDine HCl 0.1 MG Tablet PO (06:16)
[2020-01-11] MEDS: Gabapentin 300 MG Capsule PO (06:16)
[2020-01-11] MEDS: Ibuprofen 600 MG Tablet PO (06:16)
[2020-01-11] MEDS: Methocarbamol 750 MG Tablet 1500 MG PO (06:16)
[2020-01-11] MEDS: cycloBENZAPRine HCl 10 MG Tablet PO (06:16)
[2020-01-11] MEDS: Lidocaine 5% Patch 2 PATCH TOPICAL (08:21)
[2020-01-11] MEDS: Pregabalin 50 MG Capsule 100 MG PO (08:21)
[2020-01-11] MEDS: guaiFENesin 1,200 MG Tablet 1200 MG PO (08:22)
[2020-01-11] MEDS: busPIRone 5 MG Tablet 10 MG PO (08:22)
[2020-01-11] MEDS: hydroCHLOROthiazide 12.5mg 12.5 MG PO (08:23)
[2020-01-11] MEDS: amLODIPine 10 MG Tablet PO (08:24)
[2020-01-11] MEDS: predniSONE 20 MG Tablet 40 MG PO (08:24)
[2020-01-11] MEDS: Citalopram 40 MG TABLET PO (08:25)
[2020-01-11] MEDS: Famotidine 20 MG Tablet PO (08:26)
[2020-01-11] MEDS: Multivitamins,Therapeutic Tablet 1 TABLET PO (08:28)
[2020-01-11] MEDS: Thiamine Hydrochloride 100 MG Tablet PO (08:28)
[2020-01-11] MEDS: Folic Acid 1 MG Tablet PO (08:28)
[2020-01-11 08:34] VITALS: BP 126/77; PULSE 87; RESP 16; TEMP 37; O2SAT 98
[2020-01-11 08:42] VITALS: PULSE 87
[2020-01-11] MEDS: Enoxaparin 40 MG/0.4 ML Syringe SC (08:42)
[2020-01-11] MEDS: Metoprolol(XL)Succ 50 MG Tablet PO (08:42)
--- NOTE | 2020-01-11 09:25 | NURSING ---
Aware per pt is medically cleared. crisis called regarding this.
--- NOTE | 2020-01-11 09:37 | NURSING ---
discussed crisis and pt requesting to leave AMA with Dr. Leonard. aware pt is not pink slipped. Discussed above with plate take out worker. Aware they are going to make a follow up phone call with patient.
--- NOTE | 2020-01-11 10:02 | NURSING ---
After talking to the doctor, pt wants to leave AMA b/c Dr. Leonard wants her to stay until taper from phenobarb is done which would be 01/12. Pt states she wants to go home so she can smoke. This nurse offered nicotine gum as well. No I just want to go home.
--- NOTE | 2020-01-11 11:09 | PCM.DC.SUM ---
Discharge Date and Diagnosis Date of Admission: 01/09/20 Date of Discharge: 01/11/20 - Primary Discharge Diagnosis Acute Problems: Active Problems Alcohol withdrawal (Acute) COPD exacerbation (Acute) Alcohol dependence (Acute) Opioid dependence (Acute) Suicidal thoughts (Acute) - Secondary Discharge Diagnosis Chronic Problems: Chronic Problems Chronic pain syndrome (Chronic) Alcohol abuse (Chronic) Polysubstance abuse (Chronic) COPD (chronic obstructive pulmonary disease) (Chronic) COPD (chronic obstructive pulmonary disease) (Chronic) Dysthymic disorder (Chronic) Esophageal reflux (Chronic) Tobacco use disorder (Chronic) Hypertension (Chronic) Hospital Course and Treatment Operations: None Summary of Care Provided: [] The patient is 44 female with history of chronic alcohol use, chronic pain dependence on opioids, chronic opioid use and dependence, COPD and multiple other comorbidities was admitted for alcohol and opioid withdrawal syndrome. 1. Acute alcohol withdrawal with history of chronic alcohol use and dependence: Patient is started on phenobarbital based supportive medications including gabapentin, clonidine, Bentyl, Vistaril, IV fluid and antiemetics. Patient symptoms are controlled and was on phenobarbitone taper. She did not complete phenobarbital regimen. 2. Acute opioid withdrawal with history of chronic opioid use and dependence: Patient states she was using oxycodone high-dose for chronic neck pain and TMJ. On Motrin. 3. Mild COPD exacerbation: On DuoNeb, PRN albuterol, incentive spirometry, prednisone and Mucinex. Breathing is much better. 4. Anxiety, depression and suicidal ideation: Patient stated she wanted to come in front of semi-. She never had suicidal attempt. Patient was evaluated by crisis management team and she removed the sitter. She found no risk and risk for suicidal attempt or ideation. Patient has to follow with 180. 5. Chronic polysubstance use with methamphetamine: 6. Other comorbidities include hypertension, seizure provoked from epidural injection, not on antiepileptic medication, chronic cigarette smoking/nicotine dependence. Multiple comorbidities complicates the present care and expect difficult and delay recovery 7. VTE prophylaxis: Moderate risk, Lovenox 40 mg subcu daily. I spent good time in trying to reconcile to stay and complete the treatment and follow-up with 180. Despite knowing the risk of alcohol withdrawal, depression she signed AMA. Objective: Seen and examined. Patient wants to go home. Patient last dose of phenobarbital is due on 01/12 at 11:30 AM. Patient was advised not to leave hospital or signed AMA but she really wants to go home. She awake, alert and rate x3 and understands about risk of signing AMA. She has decision-making capacity at this point of time. Patient was earlier seen by crisis health team and cleared the sitter and found no excessive risk for suicidal ideation. Physical exam General: Alert, Oriented x3, Cooperative HEENT: Atraumatic, PERRLA, EOMI, Normocephalic Oral: No Gingival or Mucosal Lesions/ Ulcerations Neck: Supple, No JVD, Negative Carotid Bruits Lungs: Air entry diminished in bilateral lung bases. No crepitation/rhonchi Cardiovascular: Regular rate, Regular Rhythm, Normal S1, Normal S2, No murmurs Abdomen: Bowel Sounds Present, Soft, Non Tender, Non-Distended : No renal angle tenderness. No suprapubic tenderness. Extremities: No edema, Capillary Refill Less than 3 Seconds Skin: No rashes, No breakdown Musculoskeletal: No Tenderness to Palpation of Joints or Extremities. Mild tenderness on the back of neck. Neurological: Cranial nerves II-XII grossly intact, Deep Tendon Reflexes 2+/4 and Symmetrical, Neuro grossly intact Psych/Mental Status: Normal Affect, Appropriate. - Physical Exam Vitals/I&O's: Vital Signs Temp Pulse Resp BP Pulse Ox 98.6 F 87 16 126/77 H 98 01/11/20 08:34 01/11/20 08:42 01/11/20 08:34 01/11/20 08:34 01/11/20 08:34 Oxygen Delivery Method Room Air Weight: 201 lb 0.985 oz Body Mass Index (BMI) 36.8 Intake and Output for Last 24 Hours 01/09/20 01/10/20 01/11/20 23:59 23:59 23:59 Intake Total 1960 / 2520 2510 / 2910 900 / 900 Balance 1960 / 2520 2510 / 2910 900 / 900 Current Medications Acetaminophen (Tylenol) 500 mg PO Q4H PRN PRN PRN Reason: Temp > 100.4 F Last Admin: 01/11/20 01:22 Dose: 500 mg Documented by: Albuterol Sulfate (Ventolin Aerosols) 2.5 mg INHALATION Q2H PRN PRN PRN Reason: Dyspnea, wheezing Albuterol/Ipratropium (Duoneb) 3 ml INHALATION Q4HWA.RT [facility] Last Admin: 01/11/20 06:44 Dose: Not Given Documented by: Amlodipine Besylate (Norvasc) 10 mg PO DAILY [facility] Last Admin: 01/11/20 08:24 Dose: 10 mg Documented by: Bisacodyl (Dulcolax) 10 mg RECTAL DAILY PRN PRN PRN Reason: Constipation Buspirone HCl (Buspar) 10 mg PO BID [facility] Last Admin: 01/11/20 08:22 Dose: 10 mg Documented by: Citalopram Hydrobromide (Celexa) 40 mg PO DAILY [facility] Last Admin: 01/11/20 08:25 Dose: 40 mg Documented by: Clonidine (Catapres) 0.1 mg PO Q8H PRN PRN PRN Reason: RESTLESSNESS Last Admin: 01/11/20 06:16 Dose: 0.1 mg Documented by: Cyclobenzaprine HCl (Flexeril) 10 mg PO TID [facility] Last Admin: 01/11/20 06:16 Dose: 10 mg Documented by: Dicyclomine HCl (Bentyl) 20 mg PO Q6H PRN PRN PRN Reason: abdominal discomfort Last Admin: 01/11/20 08:34 Dose: 20 mg Documented by: Enoxaparin Sodium (Lovenox) 40 mg SC DAILY [facility] Last Admin: 01/11/20 08:42 Dose: 40 mg Documented by: Famotidine (Pepcid) 20 mg PO BID [facility] Last Admin: 01/11/20 08:26 Dose: 20 mg Documented by: Folic Acid (Folic Acid) 1 mg PO DAILY@0800 [facility] Last Admin: 01/11/20 08:28 Dose: 1 mg Documented by: Gabapentin (Neurontin) 300 mg PO Q8 [facility] Last Admin: 01/11/20 06:16 Dose: 300 mg Documented by: Guaifenesin (Mucinex) 1,200 mg PO BID [facility] Last Admin: 01/11/20 08:22 Dose: 1,200 mg Documented by: Hydrochlorothiazide () 12.5 mg PO DAILY [facility] Last Admin: 01/11/20 08:23 Dose: 12.5 mg Documented by: Hydroxyzine Pamoate (Vistaril Pamoate Capsule) 50 mg PO Q4H PRN PRN PRN Reason: mild anxiety Last Admin: 01/11/20 06:16 Dose: 50 mg Documented by: Ibuprofen (Motrin) 600 mg PO Q6H PRN PRN PRN Reason: Pain Score 6-10/10 Last Admin: 01/11/20 06:16 Dose: 600 mg Documented by: Lidocaine (Lidoderm Patch) 2 patch TOPICAL DAILY [facility]; Protocol Last Admin: 01/11/20 08:21 Dose: 2 patch Documented by: Loperamide HCl (Imodium) 2 mg PO Q4H PRN PRN PRN Reason: LOOSE STOOLS Last Admin: 01/10/20 17:12 Dose: 2 mg Documented by: Methocarbamol (Methocarbamol) 1,500 mg PO Q6H PRN PRN PRN Reason: MUSCLE SPASM Last Admin: 01/11/20 06:16 Dose: 1,500 mg Documented by: Metoprolol Succinate (Toprol Xl (Beta Emerson)) 50 mg PO DAILY [facility] Last Admin: 01/11/20 08:42 Dose: 50 mg Documented by: [facility]) [facility] Last Admin: 01/11/20 08:28 Dose: 1 tablet Documented by: Nicotine (Nicoderm Cq (Pbkc)) 21 mg TRANSDERM. DAILY [facility] Last Admin: 01/11/20 08:24 Dose: 21 mg Documented by: Ondansetron HCl (Zofran Odt) 8 mg PO Q8H PRN PRN PRN Reason: NAUSEA Last Admin: 01/10/20 12:13 Dose: 8 mg Documented by: Phenobarbital (Phenobarbital) 64.8 mg PO Q4H [facility]; Taper Stop: 01/13/20 11:29 Last Admin: 01/11/20 08:33 Dose: 64.8 mg Documented by: Prednisone () 40 mg PO DAILY@0800 [facility] Last Admin: 01/11/20 08:24 Dose: 40 mg Documented by: Pregabalin (Lyrica) 100 mg PO BID [facility] Last Admin: 01/11/20 08:21 Dose: 100 mg Documented by: Psyllium Hydrophilic Mucilloid (Metamucil) 1 packet PO DAILY [facility] Last Admin: 01/11/20 08:41 Dose: Not Given Documented by: Senna (Senokot) 2 tablet PO BID [facility] Last Admin: 01/11/20 08:41 Dose: Not Given Documented by: Sodium Chloride () 10 - 40 ml IV UD PRN PRN Reason: SALINE FLUSH Last Admin: 01/10/20 23:40 Dose: 10 ml Documented by: Thiamine HCl (Vitamin B1) 100 mg PO DAILY[facility] [place] Last Admin: 01/11/20 08:28 Dose: 100 mg Documented by: Throat Lozenges (Cepacol Sore Throat Lozenge) 1 lozenge MUCOUS MEM Q2H PRN PRN PRN Reason: SORE THROAT Trazodone HCl (Desyrel) 100 mg PO QHS PRN PRN Reason: INSOMNIA Last Admin: 01/10/20 23:27 Dose: 100 mg Documented by: Home Medications: Medications to take at Discharge Amlodipine [Norvasc] 10 mg PO DAILY 07/08/13 Celecoxib [Celebrex] 200 mg PO DAILY 07/08/13 Pregabalin [Lyrica] 100 mg PO BID 07/08/13 Citalopram [Celexa] 40 mg PO DAILY #30 tablet 09/24/14 Metoprolol(XL)Succ [Toprol Xl (Beta Emerson)] 50 mg PO DAILY #30 tablet 09/24/14 Albuterol Inhaler [Ventolin Hfa] 2 puff INHALATION 4X/DAY #0 inhaler 07/14/15 Hydrochlorothiazide [Hctz] 12.5 mg PO DAILY 12/08/15 Tizanidine HCl 4 mg PO TID PRN PRN 08/15/16 Albuterol Aerosols [Ventolin Aerosols] 2.5 mg INHALATION Q4H PRN #30 vial 01/26/18 Buspirone HCl 10 mg PO DAILY 01/08/20 Cyclobenzaprine HCl 10 mg PO TID 01/08/20 Primary Care Physician: Catrachito Berry DO [Primary Care Provider] - Medical Necessity - Tobacco Use Smoking Status: Current every day smoker Tobacco Use: Cigarettes Meaningful Use Info Meaningful Use Diagnoses (Choose all that apply): None applicable Inpatient E&M: 40908 [facility]
== END 2020-01-11 10:07 | disposition left against medical advice (07) | DRG 770 ==
LOC: ED 01-09 02:02 → MS3 01-09 02:20
PROVIDERS: Admitting Provider Family Medicine; Emergency Provider Emergency Medicine; PCP Family Medicine; Visit Provider Internal Medicine
DX: F11.23 Opioid dependence with withdrawal (principal); F10.239 Alcohol dependence with withdrawal, unspecified; F17.210 Nicotine dependence, cigarettes, uncomplicated; J44.1 Chronic obstructive pulmonary disease with (acute) exacerbation; Z86.69 Personal history of other diseases of the nervous system and sense organs; I10 Essential (primary) hypertension; K21.9 Gastro-esophageal reflux disease without esophagitis; F41.9 Anxiety disorder, unspecified; F32.9 Major depressive disorder, single episode, unspecified; G89.4 Chronic pain syndrome; Z79.899 Other long term (current) drug therapy; M26.629 Arthralgia of temporomandibular joint, unspecified side; F34.1 Dysthymic disorder
CPT/HCPCS: 36415; 71045; 80053; 80307; 80320; 81001; 83735; 84100; 84703; 85025; 87635; 93005; 94640; 99251; 99285; 99406; C9803; J7120; A4216; G0463; G0480; U0003

== ENCOUNTER → 2020-11-26 13:53 | Outpatient (CLI) | payer MEDICAID, SELFPAY ==
[2020-01-09 03:09] VITALS: BMI 36.8
[2020-11-26 13:56] LABS: Bacteria 0 SEEN /hpf (None Seen); Mucous, Urine 0 SEEN /hpf (<or=2+)
[2020-11-26 14:59] LABS: Color, Urine Yellow (Yellow); Glucose, Dipstick Normal (Normal); Ketone-Dipstick Negative (Negative); Leukocyte Esterase-Dipstick 25 /ul (Negative); Nitrite-Dipstick Negative (Negative); Occult Blood-Urine 250 /ul (Negative); Protein-Dipstick Negative (Negative); Urine Bilirubin Dipstick Negative (Negative); Urine Clarity Clear (Clear); Urine Urobilinogen Normal (Normal)
[2020-11-26 15:02] LABS: Absolute Lymphocyte Count 2.59 X10^3/uL (0.83-4.51); Absolute Neutrophil Count 5.1 X10^3/uL (2.0-7.7); Basophil# 0.06 X10^3/uL; Basophil% 0.7 % (0-1); Eosinophil# 0.18 X10^3/uL; Eosinophils% 2.1 % (0-5); Hematocrit 41.1 % (37-47); Hemoglobin 13.4 g/dL (12.0-15.0); Lymphocyte # 2.59 X10^3/ul (0.83-4.51); Lymphocyte % 29.9 % (19-41); Mean Corp Hgb Conc 32.6 g/dL (32-36); Mean Corpuscular Hgb 30.7 pg (27.0-32.0); Mean Corpuscular Volume 94.1 fL (81-99); Mean Platelet Vol. 9.9 fl (6.2-12.0); Monocyte# 0.64 X10^3/uL; Monocyte% 7.4 % (0-10); NRBC Flagged by Analyzer 0 % (0-5); Neutrophil # 5.13 X10^3/uL (2.7-7.7); Neutrophil % 59.3 % (47-70); Platelet Count 308 K/mm3 (150-450); RBC Distribution Width CV 13.9 % (11.6-14.6); RBC Distribution Width SD 47.7 fl (35.1-43.9); Red Blood Count 4.37 M/mm3 (4.2-5.4); White Blood Count 8.7 K/mm3 (4.4-11.0)
[2020-11-26 15:05] LABS: Red Blood Cells-Urine 5-10 SEEN /hpf (0-5); Squamous Epithelial Cells - UA 5-10 SEEN /hpf (5-10); White Blood Cells 0-5 SEEN /hpf (0-5)
[2020-11-26 15:09] LABS: Prothrombin Time (Protime)PT. 12.4 SECONDS (11.7-14.9)
[2020-11-26 15:28] LABS: BNP,B-Type NATRIURETIC PEPTIDE 97.9 pg/mL (0-100)
[2020-11-26 15:39] LABS: ALB/GLOB Ratio 1.2 RATIO (0.9-2.4); AST(SGOT) 43 U/L (15-37); Alanine Aminotransfer ALT/SGPT 49 U/L (13-56); Albumin, Serum 4.2 g/dL (3.2-5.0); Alkaline Phosphatase 137 U/L (45-117); Anion Gap 7 (5-15); BUN 13 mg/dL (7-18); BUN/Creat Ratio 12.5 RATIO (10-20); Calcium,Total 8.6 mg/dL (8.5-10.1); Chloride 104 mmol/L (98-107); Creatinine, Serum 1.04 mg/dL (0.55-1.02); EST Glomerular Filtration Rate 61 mL/min (>60); Est Glom Filt Rate - Afr Amer 74 mL/min (>60); Globulin 3.6 g/dL (2.2-4.2); Glucose 104 mg/dL (74-106); Potassium 4.3 mmol/L (3.5-5.1); Protein, Total 7.8 g/dL (6.4-8.2); Sodium Level 137 mmol/L (136-145); Thyroid Stim Hormone (TSH) 3.29 uIU/mL (0.358-3.74)
[2020-11-26 16:01] LABS: Hemoglobin A1c 5.2 % (3.8-5.6)
== END ==
PROVIDERS: PCP Family Medicine; Referring Provider Family Medicine; Visit Provider Family Medicine
DX: R60.9 Edema, unspecified (principal); R35.8 Other polyuria; R06.00 Dyspnea, unspecified; R73.01 Impaired fasting glucose
CPT/HCPCS: 36415; 80053; 81001; 83036; 83880; 84443; 85025; 85610

== ENCOUNTER 2021-11-22 09:08 | Emergency (ER) | payer MEDICAID, SELFPAY ==
[2021-11-22 09:15] VITALS: BP 138/84; PULSE 100; RESP 16; TEMP 36.6; O2SAT 98; BMI 24.0
--- NOTE | 2021-11-22 09:33 | EDS_ITS ---
HPI HPI - Psych History of Present Illness Chief Complaint: Suicidal Informant: patient Narrative Narrative: Presents secondary to mental health problems that she states been ongoing for quite some time. She does admit to thoughts of hurting herself and has thought of several different ways. When I asked her if she is ever attempted she states not exactly. Patient states that she recently got a rehab but does not know when that was. She states while she was in rehab she was diagnosed with COVID. [facility] Medical History Alcohol abuse COPD (chronic obstructive pulmonary disease) Hypertension Polysubstance abuse Home Medications amlodipine 10 mg tablet 10 mg PO DAILY blood pressure 07/08/13 [History Last Taken 01/08/20] celecoxib 200 mg capsule 200 mg PO DAILY depression 07/08/13 [History Last Taken 01/08/20] pregabalin 100 mg capsule (Lyrica) 100 mg PO BID nerve pain 07/08/13 [History Last Taken 01/08/20] citalopram 40 mg tablet 40 mg PO DAILY ##30 09/24/14 [Rx Last Taken 01/08/20] metoprolol succinate 50 mg tablet,extended release 24 hr 50 mg PO DAILY ##30 09/24/14 [Rx Last Taken 01/08/20] albuterol sulfate 90 mcg/actuation aerosol inhaler (Ventolin HFA) 2 puff inhalation 4X/DAY ##0 07/14/15 [Rx Last Taken 01/07/20] hydrochlorothiazide 25 mg tablet 12.5 mg PO DAILY blood pressure 12/08/15 [History Last Taken 01/08/20] tizanidine 4 mg tablet 4 mg PO TID PRN PRN MUSCLE SPASMS 08/15/16 [History Last Taken 01/08/20] albuterol sulfate 2.5 mg/3 mL (0.083 %) solution for nebulization 2.5 mg (3 mL) Inhalation Q4H PRN #30 vials 01/26/18 [Rx Last Taken Unknown] buspirone 10 mg tablet 10 mg PO DAILY depression 01/08/20 [History Last Taken 01/08/20] cyclobenzaprine 10 mg tablet 10 mg PO TID muscle spasms 01/08/20 [History Last Taken 01/08/20] Allergy/AdvReac Type Severity Reaction Status Date / Time No Known Allergies Allergy Verified 11/22/21 09:17 Social History Smoking Status: Current every day smoker tobacco type: cigarettes ROS ROS ED Constitutional Constitutional ED: Denies chills or fever(s) Eyes Eyes: Denies change in vision or discharge from eye(s) ENT ENT ED: Denies discharge from eye(s), rhinorrhea or sore throat Cardiovascular Cardiovascular: Denies chest pain or palpitations Respiratory/Chest Respiratory/Chest: Denies cough or dyspnea Gastrointestinal Gastrointestinal: Reports abdominal pain; Denies diarrhea, nausea or vomiting Genitourinary Genitourinary ED: Denies difficulty urinating or dysuria Musculoskeletal Musculoskeletal: Denies back pain or extremity pain Integumentary Denies Abrasions or rash Neurologic Neurologic: Denies headache(s) or weakness Psychiatric Psychiatric: Reports depression and suicidal ideation Endocrine Endocrinology: Denies polyuria Allergic/Immunologic Allergic/Immunologic ED: Denies lip swelling or urticaria EXAM Physical Exam Const Vital Signs: 11/22/21 09:15 Temperature 98 F Temperature Source Temporal Pulse Rate 100 Respiratory Rate 16 Blood Pressure 138/84 H Blood Pressure Mean 102 Pulse Ox 98 Oxygen Delivery Method Room Air Positive well nourished and well developed General Appearance ED: well developed HEENT Reports normocephalic and head/scalp atraumatic Eyes PERRL and EOMs intact bilaterally Neck supple Chest Wall inspection of chest normal and palpation of chest normal Resp normal respiratory effort and clear to auscultation bilaterally Cardio regular rate and regular rhythm GI GI Narrative: No guarding or rebound. Auscultation: hypoactive bowel sounds Palpation: soft and tender Extremity normal to inspection Neuro oriented x3 and no sensory deficits noted Sensorium / Orientation: alert Motor Exam: strength 5/5 throughout Psych Psych Narrative: Rest with eyes closed. Answers questions appropriately. Flat affect. Admits to suicidal ideation and has reportedly thought of multiple ways to do this. Skin no rashes or lesions noted MDM MDM MDM Narrative Medical decision making narrative: Lab work for medical clearance obtained. Lab Data Attestation: I reviewed the patient's lab results. Labs: Laboratory Results - last 24 hr 11/22/21 11/22/21 11/22/21 10:07 10:07 10:07 WBC 7.6 RBC 4.66 Hgb 14.4 Hct 43.3 MCV 92.9 MCH 30.9 MCHC 33.3 RDW Std Deviation 48.9 H RDW Coeff of Alison 14.3 Plt Count 292 MPV 10.6 Immature Gran % (Auto) 0.500 Neut % (Auto) 68.0 Lymph % (Auto) 23.2 [place] % (Auto) 6.6 Eos % (Auto) 1.3 Baso % (Auto) 0.4 Absolute Neuts (auto) 5.2 Absolute Lymphs (auto) 1.76 Nucleated RBC % 0 Reactive Lymphocytes RARE Sodium 135 L Potassium 3.8 Chloride 105 Carbon Dioxide 23.0 Anion Gap 7 BUN 10 Creatinine 0.73 Estim Creat Clear Calc 83.15 Est GFR (MDRD) Af Amer 110 Est GFR (MDRD) Non-Af 91 BUN/Creatinine Ratio 13.6 Glucose 72 L Calcium 9.4 Serum , Qual Urine Opiates Screen Urine Methadone Screen Ur Barbiturates Screen Ur Phencyclidine Scrn Ur Amphetamines Screen MDMA (Ecstasy) Screen U Benzodiazepines Scrn Urine Cocaine Screen U Cannabinoids Screen Ur Drug Screen Comment Ethyl Alcohol < 3.0 11/22/21 11/22/21 10:07 11:34 WBC RBC Hgb Hct MCV MCH MCHC RDW Std Deviation RDW Coeff of Alison Plt Count MPV Immature Gran % (Auto) Neut % (Auto) Lymph % (Auto) [place] % (Auto) Eos % (Auto) Baso % (Auto) Absolute Neuts (auto) Absolute Lymphs (auto) Nucleated RBC % Reactive Lymphocytes Sodium Potassium Chloride Carbon Dioxide Anion Gap BUN Creatinine Estim Creat Clear Calc Est GFR (MDRD) Af Amer Est GFR (MDRD) Non-Af BUN/Creatinine Ratio Glucose Calcium Serum , Qual NEGATIVE Urine Opiates Screen NEGATIVE Urine Methadone Screen NEGATIVE Ur Barbiturates Screen POSITIVE H Ur Phencyclidine Scrn NEGATIVE Ur Amphetamines Screen POSITIVE H MDMA (Ecstasy) Screen NEGATIVE U Benzodiazepines Scrn NEGATIVE Urine Cocaine Screen NEGATIVE U Cannabinoids Screen NEGATIVE Ur Drug Screen Comment Ethyl Alcohol Rapid COVID: Positive Treatment and Re-Evaluation Narrative: CBC and chemistry studies unremarkable. Alcohol negative. test negative. Talk screen is positive for barbiturates and amphetamines. Rapid COVID test is positive. Patient was seen and evaluated by social work. She remains very vague and cannot contract for safety. She will work on placement, however this may be difficult given her COVID-positive status. Patient be signed out to oncoming physician for further monitoring while awaiting placement. Discharge Plan Triage Chief Complaint: Suicidal ED Provider: Katelyn Del Real Dx/Rx/DC Orders Clinical Impression: Suicidal ideation Prescriptions: No Action celecoxib 200 MG capsule 200 mg PO DAILY Label Comments: depression amlodipine 10 MG tablet 10 mg PO DAILY Label Comments: blood pressure pregabalin [Lyrica] 100 MG capsule 100 mg PO BID Label Comments: nerve pain citalopram 40 MG tablet 40 mg PO DAILY Qty: 30 1RF Label Comments: depression metoprolol succinate 50 MG tablet 50 mg PO DAILY Qty: 30 1RF Label Comments: blood pressure albuterol sulfate [Ventolin HFA] 1 INHALER inhaler 2 puff inhalation 4X/DAY Qty: 0 0RF Rx Instructions: use only when not using Duoneb aerosols hydrochlorothiazide 25 MG tablet 12.5 mg PO DAILY tizanidine 4 MG tablet 4 mg PO TID PRN PRN (Reason: MUSCLE SPASMS) Label Comments: TAKE 1 TABLET EVERY 8 HOURS NEEDED albuterol sulfate 2.5 MG/3 ML solution for nebulization 2.5 mg Inhalation Q4H PRN Qty: 30 2RF Rx Instructions: Use q4 hours and PRN for wheezing cyclobenzaprine 10 MG tablet 10 mg PO TID buspirone 10 MG tablet 10 mg PO DAILY Primary Care Provider: Catrachito Berry Referrals: Catrachito Berry DO [Primary Care Provider] -
[2021-11-22 10:21] LABS: Absolute Lymphocyte Count 1.76 X10^3/uL (0.83-4.51); Absolute Neutrophil Count 5.2 X10^3/uL (2.0-7.7); Basophil# 0.03 X10^3/uL; Basophil% 0.4 % (0-1); Eosinophils% 1.3 % (0-5); Hematocrit 43.3 % (37-47); Hemoglobin 14.4 g/dL (12.0-15.0); Lymphocyte # 1.76 X10^3/ul (0.83-4.51); Lymphocyte % 23.2 % (19-41); Mean Corp Hgb Conc 33.3 g/dL (32-36); Mean Corpuscular Hgb 30.9 pg (27.0-32.0); Mean Corpuscular Volume 92.9 fL (81-99); Mean Platelet Vol. 10.6 fl (6.2-12.0); Monocyte% 6.6 % (0-10); NRBC Flagged by Analyzer 0 % (0-5); Neutrophil # 5.15 X10^3/uL (2.7-7.7); POSITIVE MORPHOLOGY YES; Platelet Count 292 K/mm3 (150-450); RBC Distribution Width CV 14.3 % (11.6-14.6); RBC Distribution Width SD 48.9 fl (35.1-43.9); Red Blood Count 4.66 M/mm3 (4.2-5.4); White Blood Count 7.6 K/mm3 (4.4-11.0)
[2021-11-22 10:36] LABS: Anion Gap 7 (5-15); BUN 10 mg/dL (7-18); BUN/Creat Ratio 13.6 RATIO (10-20); Calcium,Total 9.4 mg/dL (8.5-10.1); Chloride 105 mmol/L (98-107); Creatinine, Serum 0.73 mg/dL (0.55-1.02); EST Glomerular Filtration Rate 91 mL/min (>60); Est Glom Filt Rate - Afr Amer 110 mL/min (>60); Estimated Creatinine Clearance 83.15 ml/min; Glucose 72 mg/dL (74-106); Potassium 3.8 mmol/L (3.5-5.1); Sodium Level 135 mmol/L (136-145)
[2021-11-22 10:40] LABS: Differential Indicated SCAN CRITERIA MET
[2021-11-22 10:43] LABS: Reactive Lymphocyte RARE
[2021-11-22 10:46] LABS: Internal QC Validated? YES +Cl - CLEAR BKGD; Pregnancy, Serum, hCG Quali. NEGATIVE Negative
[2021-11-22 10:51] LABS: Alcohol, Blood (Medical)-Serum < 3.0 mg/dL
[2021-11-22] MEDS: Acetaminophen 325 MG Tablet 650 MG PO ×2 (11:21→21:30)
--- NOTE | 2021-11-22 11:53 | CM.ED ---
Social Work Note SW reviewed [place] Slip and Crisis assessment. Pt was at [facility] and was assessed yesterday by Crisis. Pt was [facility] Slipped to [facility] today as per [place]ip Molly Dillon made multiple comments to Penitentiary Staff about harming herself. Dilan spoke to crisis and couldn't be cleared. Wilma would benefit from further Mental Health Services. DEDRICK placed a call to [facility] and spoke with both Belkys and Clarice. Belkys called [facility] and pt has been released, pt is not on skilled nursing hold. Clarice states that pt tested positive for COVID and because of that, Haydee did the assessment over the phone. Clarice states that pt was very Evasive, didn't answer questions and pt kept hanging up the phone. Clarice states that [facility] is not an option as pt has been released from [facility] and they require 14 days from Positive COVID test. Clarice states that at this time, she is not aware of any psychiatric hospitals that will take COVID positive patients. Clarice states she will reach out to the [facility] but again states she is not aware of any psychiatric hospitals that will take COVID positive patients. Clarice states that SW may just need to call around to every psychiatric hospital to see their guidelines on when they will take a positive COVID patient. Clarice states that pt has history of bad COPD and history of ETOH use and substance use. Clarice states that pt told Haydee that she drinks 6 beers a day. Clarice states that pt was brought into skilled nursing Sunday and was intoxicated so the skilled nursing waited until they thought pt was sober to call Crisis to evaluate. DEDRICK to continue to follow, will discuss with Gaby GAMBLE. Since pt is COVID positive, this worker is not sure what options will be available for psychiatric hospitalizations. Laurita Schuster ACID EXTRACTOR, SMUTTER
[2021-11-22 12:09] LABS: Amphetamine Urine VISTA POSITIVE (<1000 ng/mL); Barbiturate Urine VISTA POSITIVE (< 200 ng/mL); Benzodiazepine Urine VISTA NEGATIVE (< 200 ng/mL); Cocaine Urine VISTA NEGATIVE (< 300 ng/mL); Ecstacy Urine VISTA NEGATIVE (< 500 ng/mL); Methadone Urine VISTA NEGATIVE (< 300 ng/mL); PCP Urine VISTA NEGATIVE (< 25 ng/mL); THC Urine VISTA NEGATIVE (< 50 ng/mL); Vista UDS pH Range 5
[2021-11-22 17:27] VITALS: BP 132/74; PULSE 68; RESP 17; O2SAT 95
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
--- NOTE | 2021-11-22 18:29 | CM.ED ---
Social Work Note DEDRICK received call from Clarice at Crisis stating [facility] will only take COVID psych patients that are in their county. Clarice states that at one time, [facility] had a COVID Unit for psych and so did [facility]. Clarice states no free standing hospital will take COVID positive patients. DEDRICK to call Psych Hospitals to inquire about policy for COVID positive psych patients. Laurita Schuster MACHINE VENEER REPAIRER, RESERVOIR ENGINEERING CONSULTANT
[2021-11-22] MEDS: Citalopram 40 MG TABLET PO (18:30)
[2021-11-22] MEDS: Celecoxib 200 MG Capsule PO (18:30)
[2021-11-22] MEDS: amLODIPine 10 MG Tablet PO (18:30)
[2021-11-22] MEDS: Pregabalin 75 MG Capsule 150 MG PO (18:31)
[2021-11-22 18:44] VITALS: BP 130/72; PULSE 68; RESP 18; O2SAT 96
--- NOTE | 2021-11-22 20:26 | CM.ED ---
Social Work Note SW called the following inpatient psychiatric hospitals to inquire about their COVID policies. [facility]: They do not take COVID positive patients. [facility] Pt has to be out of isolation before they will look at referral and then it just depends on the patient's symptoms and the physician treating the patient. [facility]: Do not take COVID positive patients, they will look at referral that is 14 days after a negative COVID test. [facility]: Pt has to be symptoms free for 5-7 days before they will consider a referral. [facility]: They do not accept COVID+ patients. [facility] [place]: They will consider a referral that is 5 days out from COVID positive test and pt has no symptoms. The test also has to be administered in the Emergency Room. They will not consider any at home tests. [facility]: Will not take any COVID positive patients [facility]: SW was on hold for 12 minutes, unable to speak to anyone in intake. [facility]: Will consider a patient that is 10 days out from positive COVID test and they will need to know if pt is Symptomatic or Asymptomatic. [facility]: Will consider a patient that is 7 days out from positive COVID test and pt will need to be fever free and symptoms free for 24 hours. [facility]: Will look at a referral that is 10 days post positive COVID test and will need a negative COVID test. [facility]: Will look at a referral that is 10 days post postive COVID test and will need a negative COVID test. SW to continue to call inpatient psych hospitals to determine COVID positive policy. Laurita Schuster CREATIVE PROJECT MANAGER, FIXED ROUTE OPERATOR
--- NOTE | 2021-11-22 20:27 | CM.ED ---
Social Work Note SW continued to call inpatient psychiatric hospitals: [facility]: message left to call SW back regarding COVID positive policy. [facility]: Will consider a referral that is 5 days post positive COVID test. [facility]: They have a west unit that is set up just for COVID positive patients and is agreeable to reviewing referral. Fax number [phone]. DEDRICK faxed referral to [facility]. Laurita Schuster CANINE SERVICE INSTRUCTOR TRAINER, MANAGER UNIT
[2021-11-22 20:37] VITALS: BP 118/92; PULSE 71; RESP 15; TEMP 36.2; O2SAT 99
[2021-11-22] MEDS: cycloBENZAPRine HCl 10 MG Tablet PO (20:41)
[2021-11-22] MEDS: Metoprolol(XL)Succ 50 MG Tablet PO (21:20)
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
[2021-11-22 23:00] VITALS: RESP 16
--- NOTE | 2021-11-22 23:42 | ED.RN ---
PT REPORTS SHE DOES NOT WANT HER LYRICA AT THIS TIME.
[2021-11-23] VITALS (9 sets, daily range): BP systolic 117–131; BP diastolic 78–81; PULSE 70–73; RESP 15–18; TEMP 36.9; O2SAT 95–96
[2021-11-23] MEDS: cycloBENZAPRine HCl 10 MG Tablet PO (06:18)
[2021-11-23] MEDS: Pregabalin 75 MG Capsule 150 MG PO (06:18)
--- NOTE | 2021-11-23 10:59 | CM.ED ---
DEDRICK Note DEDRICK met with patient's RN from the Previous day, Marisela, and she stated that patient voiced patient was upset at the custodial as they weren't giving her her psych medications and wanted to be discharged from the custodial. DEDRICK met with patient. She denied SI/HI. Patient said that she tested positive on her 2nd to last day at Detox in [place]. Patient said that the name of the [facility] was [facility]. Patient said that the staff and patient's were experiencing covid positive test. Patient is not covid vaccinated. Patient said that upon returning home she was home 5-7 days. Patient voiced that she has prescription for ambien at home and she took 4 ambien and when asked if she wanted to patient said no and stated she wanted to go to sleep and I thought I could handle it. Patient reports she had appointment with Kate on Sunday. Patient said that her drug of choice is meth. Patient said I didn't think the meds made that big of difference but stated she realized that the medication does make a difference. DEDRICK called Belkys at Crisis and updated her regarding patient and requested a reevaluation. DEDRICK called [facility] and spoke to Sgt Otero who reviewed the chart. Patient came in over the weekend and was on suicide watch with 10 minute checks and seen by crisis who recommended [facility]. Sgt Otero said that she got released by the [facility]ra[facility] Finisher Helper who was done with her and with her covid positive status she got pink slipped to the ED Lilia JIMENEZ
--- NOTE | 2021-11-23 11:04 | NURSING ---
JOSE, CRISIS, CALLED AND IS TALKING TO PATIENT
[2021-11-23] MEDS: Citalopram 40 MG TABLET PO (11:39)
[2021-11-23] MEDS: Celecoxib 200 MG Capsule PO (11:39)
--- NOTE | 2021-11-23 12:43 | CM.ED ---
DEDRICK Note DEDRICK received call from Alyx Aurelio patient's mother. She inquired about patient's plan as she said that last night patient was going to inpatient psych. DEDRICK explained the situation to Alyx and her response was so you are just kicking her to the curb. DEDRICK explained that patient needs to meet a criteria for inpatient psych and patient had not when reevaluated this morning by Crisis. Chiquitagloria said I understand. Alyx said that patient went to [facility] and then was going to residental treatment but there was covid outbreak. Chiquitagloria said that she got her daughter linked with [facility]. Alyx asked if we will follow up and Dedrick explained the role of the hospital social services technician. When talking to patient's mother she indicated that patient won't go to counseling and she is court ordered for counseling. DEDRICK discussed guardianship with patient's mother and mother indicated she had considered it. However, patient's mother resides in [place] and is just in [place] for 2 months at an campground in [place] and will be going home in November. DEDRICK provided emotional support to Alyx. No other concerns or issues voiced. Lilia JIMENEZ
== END 2021-11-23 12:45 | disposition home or self-care (01) ==
PROVIDERS: Emergency Provider Emergency Medicine; PCP Family Medicine; Visit Provider Emergency Medicine
DX: U07.1 COVID-19 (principal); J44.9 Chronic obstructive pulmonary disease, unspecified; R45.851 Suicidal ideations; F17.210 Nicotine dependence, cigarettes, uncomplicated; I10 Essential (primary) hypertension; Z79.899 Other long term (current) drug therapy
CPT/HCPCS: 80048; 80307; 82077; 84703; 85025; 87811; 99284

== ENCOUNTER 2022-03-03 02:32 | Emergency (ER) | payer MEDICAID, SELFPAY ==
[2022-03-03 02:34] VITALS: BP 125/73; PULSE 80; RESP 18; TEMP 36.8; O2SAT 99; BMI 26.4
--- NOTE | 2022-03-03 02:47 | ED.VIS.FEGU ---
HPI HPI - Female History of Present Illness Chief Complaint: Complaint Narrative Narrative: 46-year-old female here with concern for urinary retention. History of COPD, alcohol use, opiate use, reflux. Patient states symptoms started she is coming in for difficulty urinating. She describes this as dysuria, frequency. She denies urinary retention. She states she has antibiotics from another provider to take for urine infection. She also states she is got chronic neck and back pain. She states she is here to get her neck pain evaluated. She denies any recent falls or trauma. Denies any loss sensation or inability to move the hands. Patient denies any saddle anesthesia, urinary tension, bowel or bladder incontinence, lower extremity weakness, fever or IV drug use, no recent spinal manipulation or surgery, no recent urinary catheterization. [facility] Medical History Alcohol abuse COPD (chronic obstructive pulmonary disease) Hypertension Polysubstance abuse Home Medications amlodipine 10 mg tablet 10 mg PO DAILY blood pressure 07/08/13 [History Last Taken 01/08/20] celecoxib 200 mg capsule 200 mg PO DAILY depression 07/08/13 [History Last Taken 01/08/20] pregabalin 100 mg capsule (Lyrica) 100 mg PO BID nerve pain 07/08/13 [History Last Taken 01/08/20] citalopram 40 mg tablet 40 mg PO DAILY #30 tabs 09/24/14 [Rx Last Taken 01/08/20] metoprolol succinate 50 mg tablet,extended release 24 hr 50 mg PO DAILY ##30 09/24/14 [Rx Last Taken 01/08/20] hydrochlorothiazide 25 mg tablet 12.5 mg PO DAILY blood pressure 12/08/15 [History Last Taken 01/08/20] tizanidine 4 mg tablet 4 mg PO TID PRN PRN MUSCLE SPASMS 08/15/16 [History Last Taken 01/08/20] buspirone 10 mg tablet 10 mg PO DAILY depression 01/08/20 [History Last Taken 01/08/20] cyclobenzaprine 10 mg tablet 10 mg PO TID muscle spasms 01/08/20 [History Last Taken 01/08/20] hydroxyzine HCl 25 mg tablet 25 tab PO DAILY 11/22/21 [History Last Taken Unknown] Allergy/AdvReac Type Severity Reaction Status Date / Time No Known Allergies Allergy Verified 11/22/21 09:17 Social History Smoking Status: Current every day smoker tobacco type: cigarettes ROS ROS ED ROS Narrative Constitutional: Denies fever HEENT: Denies sore throat Neck: Denies neck pain Cardiovascular: Denies chest pain, syncope Respiratory: Denies shortness of breath GI: Denies nausea vomiting or abdominal pain : Endorses urinary retention Musculoskeletal: Denies muscle or joint pain Neurologic: Denies numbness weakness or loss of sensation Skin denies rash EXAM Physical Exam Narrative Exam Narrative: Nursing triage notes reviewed, Vital signs reviewed Constitutional: please see mdm HENT: MMM Eyes: Pupils equal round and reactive to light, Extraocular muscles intact Neck: No stridor, no JVD, full neck ROM, positive Spurling's test on the left. No midline step-offs deformities of cervical spine. Lungs: Clear to auscultation, No wheezing or rales. No increased work of breathing, no conversational dyspnea, no accessory muscle use, no nasal flaring. No respiratory distress noted Heart: Regular rate and rhythm, No murmurs, No rubs and No gallops, 2+ distal pulses (radial, femoral, posterior tibial) in all extremities Abdomen: Soft, there is no tenderness, rigidity, rebound or guarding, no obvious peritoneal signs, no palpable pulsatile abdominal masses, no auscultated abdominal bruit : No CVAT Extremities: No edema Back: No midline CT or L-spine step-offs deformities or tenderness to palpation Neuro: Intact sensation L1-S1 dermatomal distributions. Intact 5/5 strength in hip flexion (T12-L3). Knee extension (L2-L4). Ankle dorsiflexion (L4-L5). Ankle plantar flexion (S1). Great toe extension (L5). 2+ patellar and Achilles DTRs. Intact 5/5 strength with ok sign (median), intact finger abduction (ulnar) intact wrist extension (radial n). Intact sensation in the radial, ulnar, and median nerve distributions. Skin: No rash or lesions noted Const Vital Signs: 03/03/22 02:34 Temperature 98.2 F Temperature Source Temporal Pulse Rate 80 Respiratory Rate 18 Blood Pressure 125/73 H Blood Pressure Mean 90 Pulse Ox 99 Oxygen Delivery Method Room Air MDM MDM MDM Narrative Medical decision making narrative: 46-year-old female here for acute on chronic neck pain. No trauma endorsed. Patient's exam had no focal neurologic deficits. Low suspicion for space-occupying lesion of the spine. Patient no back pain red flags to suggest epidural abscess, mass, other space-occupying lesion. Patient was given anti-inflammatories and told to follow with her primary care physician for further outpatient treatment. I did offer the patient further testing to evaluate urinary tension such as bladder scanning, urinalysis, possible Akers placement. Patient refused. Patient was alert and orient x3 no capacity make her own medical decisions. She is clinically sober. Treatment and Re-Evaluation Narrative: The patient presented complaining of back pain. There was no history of recent fall or trauma. There was no evidence to support genitourinary etiology. There is also no evidence to suggest vascular pathology such as AAA dissection. No fevers or other evidence to suspect infectious processes, abscess, osteomyelitis etc. The patient?s neurological exam is normal with normal motor and sensory. There is no saddle paresthesias reported and no bowel or bladder incontinence or retention. I suspect the pain is mechanical in nature. Clinical suspicion, plan of care and management was discussed with the patient. The patient was instructed to follow up with their health care provider. The patient was also instructed to return if the pain worsened, changed, or developed weakness or bowel or bladder trouble. The patient agreed with plan. I completed a structured, evidence-based clinical evaluation to screen for acute non-traumatic spinal emergencies. The patient has a normal detailed neurologic exam and a low red flag score. The evidence indicates that the patient is very low risk for an acute spinal emergency and this is consistent with my clinical intuition. The risk of further workup is higher than the likelihood of the patient having a spinal epidural abscess or other dangerous emergency spinal condition. It is, therefore, in the patient?s best interest not to do additional emergent testing at this time. Shared Decision-Making I have discussed with the patient my clinical impression and the result of an evidence-based clinical evaluation to screen for spinal epidural abscess and other spinal emergencies, as well as the risk of further testing and hospitalization. The evidence shows that the risk for an acute spinal emergency is less than 1%. Although the risk of an acute spinal emergency has not been completely eliminated, the risks of further testing likely exceed any potential benefit, and the patient agrees with not pursuing further emergent evaluation for causes of back pain at this time. Discharge Plan Triage Chief Complaint: Complaint ED Provider: Popeye Bentley Dx/Rx/DC Orders Clinical Impression: Cervical radiculopathy Instructions: ED Neck Pain Prescriptions: No Action celecoxib 200 MG capsule 200 mg PO DAILY Label Comments: depression amlodipine 10 MG tablet 10 mg PO DAILY Label Comments: blood pressure pregabalin [Lyrica] 100 MG capsule 100 mg PO BID Label Comments: nerve pain citalopram 40 MG tablet 40 mg PO DAILY Qty: 30 1RF Label Comments: depression metoprolol succinate 50 MG tablet 50 mg PO DAILY Qty: 30 1RF Label Comments: blood pressure hydrochlorothiazide 25 MG tablet 12.5 mg PO DAILY tizanidine 4 MG tablet 4 mg PO TID PRN PRN (Reason: MUSCLE SPASMS) Label Comments: TAKE 1 TABLET EVERY 8 HOURS NEEDED cyclobenzaprine 10 MG tablet 10 mg PO TID buspirone 10 MG tablet 10 mg PO DAILY hydroxyzine HCl 25 mg tablet 25 tab PO DAILY Primary Care Provider: Catrachito Berry Referrals: Catrachito Berry, DO [Primary Care Provider] - Activity Restrictions/Additional Instructions: Please take Tylenol, ibuprofen every 6 hours as needed for further pain control. Please go to your local pharmacy or drugstore and obtain Salonpas lidocaine patches apply this to the painful areas as needed. Please follow with your primary care physician and/or neurologist for concern over memory issues Disposition Disposition: Home, Self Care
[2022-03-03] MEDS: dexAMETHasone 4 MG Tablet PO (03:13)
[2022-03-03] MEDS: Ibuprofen 200 MG Tablet 400 MG PO (03:13)
== END 2022-03-03 03:17 | disposition home or self-care (01) ==
PROVIDERS: Emergency Provider Emergency Medicine; PCP Family Medicine; Visit Provider Emergency Medicine
DX: M54.12 Radiculopathy, cervical region (principal); J44.9 Chronic obstructive pulmonary disease, unspecified; I10 Essential (primary) hypertension; F17.210 Nicotine dependence, cigarettes, uncomplicated; R33.9 Retention of urine, unspecified
CPT/HCPCS: 99283

== ENCOUNTER 2023-01-08 14:49 | Emergency (ER) | payer MEDICAID, SELFPAY ==
[2023-01-08] VITALS (7 sets, daily range): BP systolic 107–135; BP diastolic 81–105; PULSE 86–101; RESP 12–17; TEMP 35.9; O2SAT 97–99; BMI 30.1
--- NOTE | 2023-01-08 14:56 | ED.RN ---
Pt states that she does not want any information given out about her to Bill Esposito or Maryse Sharp.
--- NOTE | 2023-01-08 15:10 | CM.ED ---
Social Work SW received call from [facility] behavioral health worker Laurita regarding patient presenting to ED. Laurita reports the patient is paranoid people are trying to kill her, specifically patient's 's friends as well as police. Patient was on the phone with Crisis while driving to ED and patient was reporting hearing voices that police were going to pull her over and arrest or kill her. Patient made statement to Laurita she likely wouldn't make it to ED due to someone killing her. Patient has history of meth use and has been engaged in services with [facility] as well as [facility]. Plan: Evaluation Samantha Dasilva MSW, ANISHA
--- NOTE | 2023-01-08 15:12 | EKG12_ITS ---
Test Reason : CLERENCE Blood Pressure : / mmHG Vent. Rate : 095 BPM Atrial Rate : 095 BPM P-R Int : 158 ms QRS Dur : 094 ms QT Int : 382 ms P-R-T Axes : 040 033 054 degrees QTc Int : 480 ms Normal sinus rhythm Prolonged QT Abnormal ECG Confirmed by EWA GARCIA, BECKA ([id number]), state editor COMPA MELÉNDEZ ([id number]) on 01/11/2023 2:09:02 PM Referred By: Confirmed By:BECKA MCNEIL MD
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
--- NOTE | 2023-01-08 15:15 | CM.ED ---
Social Work Patient called DEDRICK from ED room requesting information for a public transportation inspector or a supervisor audit clerks. SW inquired why she needed this information, patient states because I need help. SW advised aptient she would be in to meet with patient shortly. Care team updated, HRO updated of initial concerns reported by [facility]. Samantha Dasilva MSW, ANISHA
[2023-01-08 15:32] LABS: Absolute Lymphocyte Count 3.35 X10^3/uL (0.83-4.51); Absolute Neutrophil Count 4.8 X10^3/uL (2.0-7.7); Basophil# 0.07 X10^3/uL; Basophil% 0.8 % (0-1); Eosinophil# 0.21 X10^3/uL; Eosinophils% 2.3 % (0-5); Hematocrit 40.9 % (37-47); Hemoglobin 13.8 g/dL (12.0-15.0); Lymphocyte # 3.35 X10^3/ul (0.83-4.51); Lymphocyte % 36.7 % (19-41); Mean Corp Hgb Conc 33.7 g/dL (32-36); Mean Corpuscular Hgb 31.1 pg (27.0-32.0); Mean Corpuscular Volume 92.1 fL (81-99); Mean Platelet Vol. 9.1 fl (6.2-12.0); Monocyte# 0.66 X10^3/uL; Monocyte% 7.2 % (0-10); NRBC Flagged by Analyzer 0 % (0-5); Neutrophil # 4.82 X10^3/uL (2.7-7.7); Neutrophil % 52.7 % (47-70); Platelet Count 375 K/mm3 (150-450); RBC Distribution Width CV 12.6 % (11.6-14.6); RBC Distribution Width SD 42.7 fl (35.1-43.9); Red Blood Count 4.44 M/mm3 (4.2-5.4); White Blood Count 9.1 K/mm3 (4.4-11.0)
[2023-01-08 15:42] LABS: Alcohol, Blood (Medical)-Serum < 3.0 mg/dL
[2023-01-08 15:47] LABS: Anion Gap 10 (5-15); BUN 19 mg/dL (7-18); BUN/Creat Ratio 11.1 RATIO (10-20); Calcium,Total 9.2 mg/dL (8.5-10.1); Chloride 103 mmol/L (98-107); Creatinine, Serum 1.71 mg/dL (0.55-1.02); EST Glomerular Filtration Rate 34 mL/min (>60); Est Glom Filt Rate - Afr Amer 41 mL/min (>60); Estimated Creatinine Clearance 32.17 ml/min; Glucose 102 mg/dL (74-106); Potassium 2.8 mmol/L (3.5-5.1); Sodium Level 137 mmol/L (136-145); Troponin-I HS 3 pg/mL (3.0-54.0)
--- NOTE | 2023-01-08 15:50 | RAD_ITS ---
EXAM: XR CHEST, 1 VIEW CLINICAL INDICATION: cp TECHNIQUE: Frontal view of the chest. COMPARISON: 01/08/2020 FINDINGS: LUNGS AND PLEURAL SPACES: Unremarkable. No consolidation or edema. No pneumothorax. No effusion. HEART: Unremarkable. Cardiac silhouette not enlarged. MEDIASTINUM: Central airways and mediastinal contour are unremarkable. BONES/JOINTS: There is a fracture of the left sixth rib. SOFT TISSUES: Unremarkable. RAD/Chest 1 View (Portable) IMPRESSION: Fracture of the left sixth rib. There is no pulmonary abnormality. Electronically Signed: Jere Waldron MD at 16:11 EDT ,
[2023-01-08] MEDS: 0.9% Normal Saline (1000mL) 1,000 ML 999 ML IV (16:40)
[2023-01-08] MEDS: Potassium Chloride Oral Tablet 20 MEQ 40 MEQ PO (16:40)
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
--- NOTE | 2023-01-08 19:02 | ED.RN ---
ASSISTED TO RESTROOM AGAIN. PT AGAIN STATES SHE DOES NOT NEED TO URINATE AND CANNOT PROVIDE URINE SAMPLE. PT REFUSING TO BE ST CATH'D TO OBTAIN URINE SAMPLE.
--- NOTE | 2023-01-08 20:15 | CM.ED ---
Social Work SW faxed referrals to [facility] as well as [facility] as they report bed availability. UR results to be faxed when available. Plan: referrals pending at [facility] Samantha PONCE, ANISHA
--- NOTE | 2023-01-08 21:25 | CM.ED ---
Social Work Patient accepted to [facility], [facility] [address] [phone]. Plan: [facility] Patria PONCE, ANISHA
--- NOTE | 2023-01-08 22:09 | ED.RN ---
ACCEPTED 2 [facility] ETA 8AM 01/09/23
--- NOTE | 2023-01-08 22:37 | CM.ED ---
Social Work SW attempted to contact patient's with update, no answer. SW contacted patient's daughter and provided an update regarding psych placement. Patient's daughter voiced understanding and has no questions. Plan: [facility] Samantha PONCE, ANISHA
--- NOTE | 2023-01-08 22:58 | ED.RN ---
spoke with , informed [facility] but not till in the morning and that the pt was resting.
[2023-01-09] VITALS (8 sets, daily range): BP systolic 110–112; BP diastolic 70–72; PULSE 74–77; RESP 12–16; TEMP 36.5; O2SAT 100
== END 2023-01-09 08:17 ==
PROVIDERS: Emergency Provider Emergency Medicine; PCP Family Medicine; Visit Provider Emergency Medicine
DX: F22 Delusional disorders (principal); J44.9 Chronic obstructive pulmonary disease, unspecified; E87.6 Hypokalemia; I10 Essential (primary) hypertension; F17.210 Nicotine dependence, cigarettes, uncomplicated; R07.9 Chest pain, unspecified; Z79.899 Other long term (current) drug therapy
CPT/HCPCS: 71045; 80048; 82077; 84484; 85025; 93005; 96360; 96361; 99285; A4216